=== PATIENT | female | born 1990 | race Caucasian/White ===

== ENCOUNTER 2016-05-04 17:16 | Emergency (ER) | payer OTHER ==
[2016-05-04 17:59] LABS: MEAN CORPUSCULAR HEMOGLOBIN 30.1 pg (27.0-33.0); MEAN CORPUSCULAR HGB CONC 34.7 g/dl (32.0-36.5); MEAN CORPUSCULAR VOLUME 86.7 fl (80.0-96.0); WHITE BLOOD COUNT 7.8 K/mm3 (4.0-10.0)
--- NOTE | 2016-05-04 19:09 | REP ---
First trimester obstetrical ultrasound for vaginal bleeding: The study is performed with transabdominal, endovaginal and Doppler ultrasound assessment: Balloon the uterus is anteflexed and the fundus is anteverted. There is no intrauterine gestational sac. The endometrium is not thickened measuring 13 mm. There is no fluid within the endometrial canal. The ovaries are normal size. Right ovary measures 2.6 x 2.6 x 2.7 cm. Left ovary measures 2.9 x 2.0 x 1.8 cm. There is vascular flow in both ovaries with the Doppler resistive index of intraparenchymal arteries on the right measuring 0.35 and on the left 0.55. There is a 1.7 cm hyperechoic probable hemorrhagic cyst of the left ovary. There is no free fluid in the pelvis. Impression: The findings are nonspecific and could represent an early intrauterine gestation not yet visible ultrasonographically, spontaneous , blighted ovum or ectopic gestation. Follow-up is recommended. Signed by Rajesh Guadalupe MD 05/04/2016 07:00 P
--- NOTE | 2016-05-04 20:34 | EDDOCDS ---
Physician Documentation [facility] Name: Doris May Age: 25 yrs Sex: Female : 1990 Arrival Date: 05/04/2016 Time: 17:16 Bed I2 / M2 Private MD: Jadon Disposition: 05/04/16 20:23 Discharged to Home/Self Care. Impression: Threatened . - Condition is Stable. - Discharge Instructions: Threatened Miscarriage. - Medication Reconciliation, Local Pharmacy Hours form. - Follow up: Private Physician; When: Tomorrow; Reason: Recheck today's complaints, Continuance of care. - Problem is new. - Symptoms have improved. - Notes: PLEASE FOLLOW UP WITH [facility] TOMORROW, RETURN TO THE ER IF THE SYPTOMS WORSEN OR BECOME CONCERNING Historical: - Allergies: No known drug Allergies; - Home Meds: 1. prednisone 5 mg Oral tab once daily 2. endometrin Unknown daily - PMHx: none; - PSHx: D & C; - Social history: Smoking status: Patient states was never smoker of tobacco. No barriers to communication noted, The patient speaks fluent Syriac, Speaks appropriately for age. - Family history: Not pertinent. - : The pt / caregiver states he / she is not on anticoagulants. Home medication list is obtained from the patient. - Exposure Risk Screening:: None identified. RN PRIVATE DUTY: 05/04 20:33 LMP N/A - control method mlc Vital Signs: 17:18 BP 123 / 82; Pulse 57; Resp 18 S; Temp 97.0(O); Pulse Ox 98% on R/A; Weight 69.4 kg / gr2 153 lbs (R); Height 5 ft. 3 in. (160.02 cm) (R); Pain 3/10; 20:32 BP 119 / 71; Pulse 62; Resp 16; Temp 98.0; Pulse Ox 99% on R/A; Pain 0/10; mlc 17:18 Body Mass Index 27.10 (69.40 kg, 160.02 cm) gr2 MDM: 17:39 Undress patient appropriately for examination ordered. cc10 17:39 Set up pelvic ordered. cc10 17:40 Wet Prep Ordered. EDMS 17:40 Urine Culture Ordered. EDMS 17:41 US 1st trimester Ordered. EDMS 17:41 Complete Blood Count Ordered. EDMS 17:41 Hcg, Serum Quantitative Ordered. EDMS 17:41 Type & Screen Ordered. EDMS 17:41 Urinalysis Ordered. EDMS 17:41 GC & Chlamydia Amplification Ordered. EDMS 17:47 Financial registration complete. ks16 18:42 TRANSVAGINAL US Ordered. EDMS 18:43 DUPLEX SCAN LIMITED (DOPPLER) Ordered. EDMS 19:12 Complete Blood Count Reviewed. ck7 19:12 Hcg, Serum Quantitative Reviewed. ck7 19:12 Type & Screen Reviewed. ck7 19:12 Wet Prep Reviewed. ck7 19:12 US 1st trimester Reviewed. ck7 20:06 [facility] [place] Payment Agreement was scanned into [employer] and attached to record. ks16 20:20 Urinalysis Reviewed. ck7 Signatures: Dispatcher [employer] Deborah Ramirez, RN RN hs1 Joseph Watkins, RPA-C RPA-Cck7 Kavita Rangel RN RN mk4 Celio Snow PA-C PA-C cc10 Odette Garces RN RN [facility] [place] Ana Jarvis, Reg Reg ks16 The chart was reviewed and I authenticate all verbal orders and agree with the evaluation and treatment provided.Attachments: 20:06 [facility] [place] Payment Agreement ks16 MTDD
--- NOTE | 2016-05-04 20:34 | EDDOCDS ---
Nurse's Notes [facility] Name: Doris Dobson Age: 25 yrs Sex: Female : 1990 Arrival Date: 05/04/2016 Time: 17:16 Bed I2 / M2 Private MD: Jadon Diagnosis: Threatened Presentation: 05/04 17:24 Presenting complaint: Patient states: 6 weeks and started bleeding. Patient hs1 reports cramping and found blood in underwear. Small clots also noted. Risk factors: The patient reports no loss of conciousness prior to arrival. This patient has not had a hysterectomy. This patient has not begun menopause. Adult Sepsis Screening: The patient does not have new or worsening altered mentation. Patient's respiratory rate is less than 22. Systolic blood pressure is greater than 100. Patient has a qSOFA score of 0- Negative Sepsis Screen. Suicide/Homicide risk assessment- the patient denies having any suicidal and/or homicidal ideations and does not present with any other emotional, behavioral or mental health complaints. Status: Patient is not a career services director or dependent. Transition of care: patient was not received from another setting of care. 17:24 Acuity: LISA Level 3 hs1 17:24 Method Of Arrival: Walkin/Carried/Asstd hs1 Triage Assessment: 17:28 General: Appears uncomfortable, Behavior is anxious, appropriate for age, cooperative. hs1 Pain: Location: pelvis Pain currently is 2 out of 10 on a pain scale. Quality of pain is described as crampy. HIV screening NA for this visit Offered previously. : Reports vaginal bleeding that is with clots light flow. ADULT PSYCHIATRIST: 20:33 LMP N/A - control method mlc Historical: - Allergies: No known drug Allergies; - Home Meds: 1. prednisone 5 mg Oral tab once daily 2. endometrin Unknown daily - PMHx: none; - PSHx: D & C; - Social history: Smoking status: Patient states was never smoker of tobacco. No barriers to communication noted, The patient speaks fluent Estonian, Speaks appropriately for age. - Family history: Not pertinent. - : The pt / caregiver states he / she is not on anticoagulants. Home medication list is obtained from the patient. - Exposure Risk Screening:: None identified. Screenin:33 Screening information is obtained from the patient. Fall risk: No risks identified. mk4 Assistance ADL's: requires no assistance with activities of daily living. Abuse/DV Screen: The patient / caregiver reports he/she is: not in a situation that causes fear, pain or injury. Nutritional screening: No deficits noted. Advance Directives: Currently, there is no health care proxy. There is no active DNR order. There is no living will. There is no Power of Home Theater Experience Expert. home support is adequate. Assessment: 17:33 General: Appears uncomfortable. Pain: Location: dull abd cramping. : Reports vaginal mk4 bleeding that is sudden onset about an hour ago, is approx 6 weeks , third , prev 2 have ended in miscarriage felt a gush of blood then she wiped and had bleeding on the paper, some dull abd cramping today. 17:44 Respiratory: Respiratory effort is unlabored, Respiratory pattern is regular, ck1 symmetrical. : Reports cramping vaginal bleeding that is brown light flow Denies burning with urination, urinary frequency. Derm: Skin is pink, warm & dry. 18:40 General: Appears in no apparent distress, comfortable. Pain: Location: pelvis Pain ck1 currently is 2 out of 10 on a pain scale. Quality of pain is described as crampy. Neurological: Level of Consciousness is awake, alert, obeys commands. Respiratory: Respiratory effort is unlabored, Respiratory pattern is regular, symmetrical. : Reports vaginal bleeding that is brown light flow. Derm: Skin is pink, warm & dry. 19:44 General: Appears in no apparent distress, comfortable, Behavior is cooperative, crying. mlc General: SO at bedside. Pain: Denies pain. Neurological: Level of Consciousness is awake, alert, Oriented to person, place, time. Respiratory: Airway is patent Respiratory effort is even, unlabored, Respiratory pattern is regular. GI: Denies nausea. Derm: Skin is pink, warm & dry. Vital Signs: 17:18 BP 123 / 82; Pulse 57; Resp 18 S; Temp 97.0(O); Pulse Ox 98% on R/A; Weight 69.4 kg gr2 (R); Height 5 ft. 3 in. (160.02 cm) (R); Pain 3/10; 20:32 BP 119 / 71; Pulse 62; Resp 16; Temp 98.0; Pulse Ox 99% on R/A; Pain 0/10; mlc 17:18 Body Mass Index 27.10 (69.40 kg, 160.02 cm) gr2 Vitals: 17:18 Log In Time: May 04, 2016 at 17:18. gr2 ED Course: 17:18 Patient visited by Priscilla Parker. gr2 17:18 Jadon is Private Physician. gr2 17:18 Patient moved to Waiting gr2 17:19 Patient visited by Priscilla Parker. gr2 17:19 Patient moved to Pre RCE gr2 17:25 Triage Initiated hs1 17:30 Patient moved to I2 / M2 mk4 17:35 Celio Snow PA-C is PHCP. cc10 17:35 Raymond Hurley DO is Attending Physician. cc10 17:35 Patient visited by Celio Snow PA-C. cc10 17:35 Patient visited by Celio Snow PA-C. cc10 17:45 Patient visited by Nikkie Michelle RN. ck1 17:45 The patient / caregiver is instructed regarding the plan of care and ED course. ck1 17:51 Complete Blood Count Sent. ck1 17:51 Hcg, Serum Quantitative Sent. ck1 17:51 Type & Screen Sent. ck1 17:54 Assist provider with pelvic exam: Set up pelvic tray. Specimens sent to lab. Performed ck1 by Celio Snow PA-C Patient tolerated well. 17:54 GC & Chlamydia Amplification Sent. ck1 17:54 Wet Prep Sent. ck1 18:02 PHCP role handed off by Celio Snow PA-C ck7 18:02 Joseph Watkins RPA-C is PHCP. ck7 18:07 Pt greeted and oriented to ED. Patient advised of names of staff involved in care, jam1 location of call disla, wait times and NPO status. Patient has correct armband on for positive identification. Placed in gown. Bed in low position. Call light in reach. Side rails up X 1. Door closed. 18:17 Patient visited by Joseph Watkins RPA-C. ck7 18:20 Patient moved to Ultrasound br3 18:36 Patient moved to I2 / M2 ck1 18:48 Patient visited by Nikkie Michelle RN. ck1 19:09 US 1st trimester Returned. EDMS 19:22 Patient visited by Joseph Watkins RPA-C. ck7 19:44 Urine Culture Sent. mlc 19:44 Urinalysis Sent. mlc 19:45 Patient visited by Odette Garces RN. mlc 20:06 [facility] Payment Agreement was scanned into [employer] and attached to record. ks16 20:17 Patient visited by Joseph Watkins RPA-C. ck7 20:32 Odette Garces,ANNEMARIE is Primary Nurse. mlc 20:32 Patient visited by Odette Garces RN. mlc 20:32 No IV's were initiated during this patient's visit. [facility] [place] Results: Lab Order: Complete Blood Count; SPEC'M 05/04/16 17:50 Test: WHITE BLOOD COUNT; Value: 7.8; Range: 4.0-10.0; Units: K/mm3; Status: F Test: RED BLOOD COUNT; Value: 4.05; Range: 4.00-5.40; Units: M/mm3; Status: F Test: HEMOGLOBIN; Value: 12.2; Range: 12.0-16.0; Units: g/dl; Status: F Test: HEMATOCRIT; Value: 35.1; Range: 36.0-47.0; Abnormal: Below low normal; Units: %; Status: F Test: MEAN CORPUSCULAR VOLUME; Value: 86.7; Range: 80.0-96.0; Units: fl; Status: F Test: MEAN CORPUSCULAR HEMOGLOBIN; Value: 30.1; Range: 27.0-33.0; Units: pg; Status: F Test: MEAN CORPUSCULAR HGB CONC; Value: 34.7; Range: 32.0-36.5; Units: g/dl; Status: F Test: RED CELL DISTRIBUTION WIDTH; Value: 12.0; Range: 11.5-14.5; Units: %; Status: F Test: PLATELET COUNT, AUTOMATED; Value: 187; Range: 150-450; Units: k/mm3; Status: F Lab Order: Hcg, Serum Quantitative; SPEC'M 05/04/16 17:50 Test: HCG, SERUM QUANTITATIVE; Value: 574; Units: MIU/ML; Status: F Test Note: ; GESTATIONAL AGE APPROXIMATE HCG RANGE (MIU/ML) 0.2-1 WEEK 5-50 1-2 WEEKS 50-500 2-3 WEEKS 100-5,000 3-4 WEEKS 500-10,000 4-5 WEEKS 1,000-50,000 5-6 WEEKS 10,000-100,000 6-8 WEEKS 15,000-200,000 2-3 MONTHS 10,000-100,000 NON FEMALES LESS THAN 3.0 Patient samples may contain human heterophilic antibodies that could react with immunoassays to give falsely elevated or depressed results. This assay has been designed to minimize interference from heterophilic antibodies. Elevated hCG levels have also been associated with trophoblastic disease and nontrophoblastic neoplasms. The possibility of having these diseases should be considered before a diagnosis of is made. This test is not intended for use as a surrogate marker for aiding in the diagnosis or monitoring the treatment of cancer patients. [employer] [place] methodology. Lab Order: Type & Screen; SPEC'M 05/04/16 17:50 Test: BLOOD TYPE; Value: O POS; Status: F Test: AB SCREEN (INDIRECT FARTUN)VIS; Value: NEGATIVE; Status: F Lab Order: Urinalysis; SPEC'M 05/04/16 19:41 Test: APPEARANCE, URINE; Value: HAZY; Range: CLEAR; Status: F Test: COLOR, URINE; Value: YELLOW; Range: YELLOW; Status: F Test: PH,URINE; Value: 5.0; Range: 5.0-9.0; Units: UNITS; Status: F Test: SPECIFIC GRAVITY URINE AUTO; Value: 1.025; Range: 1.002-1.035; Status: F Test: PROTEIN, URINE AUTO; Value: NEGATIVE; Range: NEGATIVE; Units: mg/dL; Status: F Test: GLUCOSE, URINE (UA) AUTO; Value: NEGATIVE; Range: NEGATIVE; Units: mg/dL; Status: F Test: KETONE, URINE AUTO; Value: TRACE; Range: NEGATIVE; Abnormal: Above high normal; Units: mg/dL; Status: F Test: UROBILINOGEN, URINE AUTO; Value: 0.2; Range: 0.0-2.0; Units: mg/dL; Status: F Test: BILIRUBIN, URINE AUTO; Value: NEGATIVE; Range: NEGATIVE; Status: F Test: NITRITE, URINE AUTO; Value: NEGATIVE; Range: NEGATIVE; Status: F Test: LEUKOCYTE ESTERASE, URINE AUTO; Value: NEGATIVE; Range: NEGATIVE; Status: F Test: BLOOD, URINE BLOOD; Value: 3+; Range: NEGATIVE; Abnormal: Above high normal; Status: F Test: WBC, URINE AUTO; Value: 2; Range: 0-3; Units: /HPF; Status: F Test: RBC, URINE AUTO; Value: 120; Range: 0-3; Abnormal: Above high normal; Units: /HPF; Status: F Test: BACTERIA, URINE AUTO; Value: 1+; Range: NEGATIVE; Abnormal: Above high normal; Status: F Test: SQUAMOUS EPITHELIAL CELL UR AU; Value: 2; Range: 0-6; Units: /HPF; Status: F Test: MUCUS, URINE; Value: SMALL; Range: NEGATIVE; Status: F Test: HYALINE CAST, URINE AUTO; Value: 0; Range: 0-1; Units: /LPF; Status: F Lab Order: Wet Prep; SPEC'M 05/04/16 17:50 Test: WET PREP; Value: WET PREP RESULT; Status: F Test: WET PREP; Value: MODERATE EPITHELIAL CELLS PRESENT; Status: F Test: WET PREP; Value: FEW WBC; Status: F Test: WET PREP; Value: FEW RBC; Status: F Test: WET PREP; Value: MODERATE LONG RODS PRESENT; Status: F Test: WET PREP; Value: FEW SHORT RODS PRESENT; Status: F Radiology Order: US 1st trimester Test: US 1st trimester REASON FOR EXAMINATION: Bleeding; First trimester obstetrical ultrasound for vaginal bleeding:; ; The study is performed with transabdominal, endovaginal and Doppler ultrasound; assessment:; ; Balloon the uterus is anteflexed and the fundus is anteverted.; ; There is no intrauterine gestational sac. The endometrium is not thickened; measuring 13 mm. There is no fluid within the endometrial canal.; ; The ovaries are normal size.; Right ovary measures 2.6 x 2.6 x 2.7 cm.; Left ovary measures 2.9 x 2.0 x 1.8 cm.; ; There is vascular flow in both ovaries with the Doppler resistive index of; intraparenchymal arteries on the right measuring 0.35 and on the left 0.55.; ; There is a 1.7 cm hyperechoic probable hemorrhagic cyst of the left ovary.; ; There is no free fluid in the pelvis.; ; Impression:; ; The findings are nonspecific and could represent an early intrauterine gestation; not yet visible ultrasonographically, spontaneous , blighted ovum or; ectopic gestation.; ; Follow-up is recommended.; ; ; Signed by; Rajesh Guadalupe MD 05/04/2016 07:00 P; Outcome: 18:36 Ultrasound Study completed. ck1 20:23 Discharge ordered by Provider. ck7 20:32 Discharge Assessment: Patient awake, alert and oriented x 3. No cognitive and/or mlc functional deficits noted. Patient verbalized understanding of disposition instructions. Patient awake and alert. Oriented to person, place and time. patient administered narcotics - no. The following High Risk Discharge criteria are identified: None. Condition: good Condition: stable Condition: improved. Discharge instructions given to patient. Property :Personal belongings accompany Pt. 20:33 [place]. [facility] [place] Signatures: Dispatcher [employer] EDMS Darby Khan, BOARD FILLER BOARD FILLER jam1 Nikkie MichelleRN RN ck1 Kaitlin Parker br3 Deborah Ross RN RN hs1 Joseph Watkins, RPA-C RPA-Cck7 Priscilla Parker gr2 Kavita Rangel RN RN mk4 Celio Snow PA-C PA-C cc10 Odette Garces RN RN [facility] [place] Ana Jarvis, Reg Reg ks16 MTDD
--- NOTE | 2016-05-06 21:34 | EDDOCDS ---
Nurse's Notes [facility] Name: Doris Dobson Age: 25 yrs Sex: Female : 1990 Arrival Date: 05/04/2016 Time: 17:16 Bed I2 / M2 Private MD: Jaodn Diagnosis: Threatened Presentation: 05/04 17:24 Presenting complaint: Patient states: 6 weeks and started bleeding. Patient hs1 reports cramping and found blood in underwear. Small clots also noted. Risk factors: The patient reports no loss of conciousness prior to arrival. This patient has not had a hysterectomy. This patient has not begun menopause. Adult Sepsis Screening: The patient does not have new or worsening altered mentation. Patient's respiratory rate is less than 22. Systolic blood pressure is greater than 100. Patient has a qSOFA score of 0- Negative Sepsis Screen. Suicide/Homicide risk assessment- the patient denies having any suicidal and/or homicidal ideations and does not present with any other emotional, behavioral or mental health complaints. Status: Patient is not a printing services coordinator or dependent. Transition of care: patient was not received from another setting of care. 17:24 Acuity: LISA Level 3 hs1 17:24 Method Of Arrival: Walkin/Carried/Asstd hs1 Triage Assessment: 17:28 General: Appears uncomfortable, Behavior is anxious, appropriate for age, cooperative. hs1 Pain: Location: pelvis Pain currently is 2 out of 10 on a pain scale. Quality of pain is described as crampy. HIV screening NA for this visit Offered previously. : Reports vaginal bleeding that is with clots light flow. 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 prednisone 5 mg Oral tab once daily 2. endometrin Unknown daily - PMHx: none; - PSHx: D & C; - Social history: Smoking status: Patient states was never smoker of tobacco. No barriers to communication noted, The patient speaks fluent Setswana, Speaks appropriately for age. - Family history: Not pertinent. - : The pt / caregiver states he / she is not on anticoagulants. Home medication list is obtained from the patient. - Exposure Risk Screening:: None identified. Screenin:33 Screening information is obtained from the patient. Fall risk: No risks identified. mk4 Assistance ADL's: requires no assistance with activities of daily living. Abuse/DV Screen: The patient / caregiver reports he/she is: not in a situation that causes fear, pain or injury. Nutritional screening: No deficits noted. Advance Directives: Currently, there is no health care proxy. There is no active DNR order. There is no living will. There is no Power of Rail Car Repairman. home support is adequate. Assessment: 17:33 General: Appears uncomfortable. Pain: Location: dull abd cramping. : Reports vaginal mk4 bleeding that is sudden onset about an hour ago, is approx 6 weeks , third , prev 2 have ended in miscarriage felt a gush of blood then she wiped and had bleeding on the paper, some dull abd cramping today. 17:44 Respiratory: Respiratory effort is unlabored, Respiratory pattern is regular, ck1 symmetrical. : Reports cramping vaginal bleeding that is brown light flow Denies burning with urination, urinary frequency. Derm: Skin is pink, warm & dry. 18:40 General: Appears in no apparent distress, comfortable. Pain: Location: pelvis Pain ck1 currently is 2 out of 10 on a pain scale. Quality of pain is described as crampy. Neurological: Level of Consciousness is awake, alert, obeys commands. Respiratory: Respiratory effort is unlabored, Respiratory pattern is regular, symmetrical. : Reports vaginal bleeding that is brown light flow. Derm: Skin is pink, warm & dry. 19:44 General: Appears in no apparent distress, comfortable, Behavior is cooperative, crying. mlc General: SO at bedside. Pain: Denies pain. Neurological: Level of Consciousness is awake, alert, Oriented to person, place, time. Respiratory: Airway is patent Respiratory effort is even, unlabored, Respiratory pattern is regular. GI: Denies nausea. Derm: Skin is pink, warm & dry. Vital Signs: 17:18 BP 123 / 82; Pulse 57; Resp 18 S; Temp 97.0(O); Pulse Ox 98% on R/A; Weight 69.4 kg gr2 (R); Height 5 ft. 3 in. (160.02 cm) (R); Pain 3/10; 20:32 BP 119 / 71; Pulse 62; Resp 16; Temp 98.0; Pulse Ox 99% on R/A; Pain 0/10; mlc 17:18 Body Mass Index 27.10 (69.40 kg, 160.02 cm) gr2 Vitals: 17:18 Log In Time: May 04, 2016 at 17:18. gr2 ED Course: 17:18 Patient visited by Priscilla Parker. gr2 17:18 Jadon is Private Physician. gr2 17:18 Patient moved to Waiting gr2 17:19 Patient visited by Priscilla Parker. gr2 17:19 Patient moved to Pre RCE gr2 17:25 Triage Initiated hs1 17:30 Patient moved to I2 / M2 mk4 17:35 Celio Snow PA-C is PHCP. cc10 17:35 Raymond Hurley DO is Attending Physician. cc10 17:35 Patient visited by Celio Snow PA-C. cc10 17:35 Patient visited by Celio Snow PA-C. cc10 17:45 Patient visited by Nikkie Michelle RN. ck1 17:45 The patient / caregiver is instructed regarding the plan of care and ED course. ck1 17:51 Complete Blood Count Sent. ck1 17:51 Hcg, Serum Quantitative Sent. ck1 17:51 Type & Screen Sent. ck1 17:54 Assist provider with pelvic exam: Set up pelvic tray. Specimens sent to lab. Performed ck1 by Celio Snow PA-C Patient tolerated well. 17:54 GC & Chlamydia Amplification Sent. ck1 17:54 Wet Prep Sent. ck1 18:02 PHCP role handed off by Celio Snow PA-C ck7 18:02 Joseph Watkins RPA-C is PHCP. ck7 18:07 Pt greeted and oriented to ED. Patient advised of names of staff involved in care, jam1 location of call disla, wait times and NPO status. Patient has correct armband on for positive identification. Placed in gown. Bed in low position. Call light in reach. Side rails up X 1. Door closed. 18:17 Patient visited by Joseph Watkins RPA-C. ck7 18:20 Patient moved to Ultrasound br3 18:36 Patient moved to I2 / M2 ck1 18:48 Patient visited by Nikkie Michelle RN. ck1 19:09 US 1st trimester Returned. EDMS 19:22 Patient visited by Joseph Watkins RPA-C. ck7 19:44 Urine Culture Sent. mlc 19:44 Urinalysis Sent. mlc 19:45 Patient visited by Odette Garces,ANNEMARIE. mlc 20:06 [facility] Payment Agreement was scanned into mimoOn and attached to record. ks16 20:17 Patient visited by Joseph Watkins RPA-C. ck7 20:32 Odette Garces,ANNEMARIE is Primary Nurse. mlc 20:32 Patient visited by Odette Garces RN. mlc 20:32 No IV's were initiated during this patient's visit. [facility] [place] 05/05 11:29 T-Sheet-- Draft Copy was scanned into mimoOn and attached to record. gb Order Results: Lab Order: Complete Blood Count; SPEC'M 05/04/16 17:50 Test: WHITE BLOOD COUNT; Value: 7.8; Range: 4.0-10.0; Units: K/mm3; Status: F Test: RED BLOOD COUNT; Value: 4.05; Range: 4.00-5.40; Units: M/mm3; Status: F Test: HEMOGLOBIN; Value: 12.2; Range: 12.0-16.0; Units: g/dl; Status: F Test: HEMATOCRIT; Value: 35.1; Range: 36.0-47.0; Abnormal: Below low normal; Units: %; Status: F Test: MEAN CORPUSCULAR VOLUME; Value: 86.7; Range: 80.0-96.0; Units: fl; Status: F Test: MEAN CORPUSCULAR HEMOGLOBIN; Value: 30.1; Range: 27.0-33.0; Units: pg; Status: F Test: MEAN CORPUSCULAR HGB CONC; Value: 34.7; Range: 32.0-36.5; Units: g/dl; Status: F Test: RED CELL DISTRIBUTION WIDTH; Value: 12.0; Range: 11.5-14.5; Units: %; Status: F Test: PLATELET COUNT, AUTOMATED; Value: 187; Range: 150-450; Units: k/mm3; Status: F Lab Order: Hcg, Serum Quantitative; SPEC'M 05/04/16 17:50 Test: HCG, SERUM QUANTITATIVE; Value: 574; Units: MIU/ML; Status: F Test Note: ; GESTATIONAL AGE APPROXIMATE HCG RANGE (MIU/ML) 0.2-1 WEEK 5-50 1-2 WEEKS 50-500 2-3 WEEKS 100-5,000 3-4 WEEKS 500-10,000 4-5 WEEKS 1,000-50,000 5-6 WEEKS 10,000-100,000 6-8 WEEKS 15,000-200,000 2-3 MONTHS 10,000-100,000 NON FEMALES LESS THAN 3.0 Patient samples may contain human heterophilic antibodies that could react with immunoassays to give falsely elevated or depressed results. This assay has been designed to minimize interference from heterophilic antibodies. Elevated hCG levels have also been associated with trophoblastic disease and nontrophoblastic neoplasms. The possibility of having these diseases should be considered before a diagnosis of is made. This test is not intended for use as a surrogate marker for aiding in the diagnosis or monitoring the treatment of cancer patients. Siemens [place] methodology. Lab Order: Type & Screen; [facility] 05/04/16 17:50 Test: BLOOD TYPE; Value: O POS; Status: F Test: AB SCREEN (INDIRECT FARTUN)VIS; Value: NEGATIVE; Status: F Lab Order: Urinalysis; [facility] 05/04/16 19:41 Test: APPEARANCE, URINE; Value: HAZY; Range: CLEAR; Status: F Test: COLOR, URINE; Value: YELLOW; Range: YELLOW; Status: F Test: PH,URINE; Value: 5.0; Range: 5.0-9.0; Units: UNITS; Status: F Test: SPECIFIC GRAVITY URINE AUTO; Value: 1.025; Range: 1.002-1.035; Status: F Test: PROTEIN, URINE AUTO; Value: NEGATIVE; Range: NEGATIVE; Units: mg/dL; Status: F Test: GLUCOSE, URINE (UA) AUTO; Value: NEGATIVE; Range: NEGATIVE; Units: mg/dL; Status: F Test: KETONE, URINE AUTO; Value: TRACE; Range: NEGATIVE; Abnormal: Above high normal; Units: mg/dL; Status: F Test: UROBILINOGEN, URINE AUTO; Value: 0.2; Range: 0.0-2.0; Units: mg/dL; Status: F Test: BILIRUBIN, URINE AUTO; Value: NEGATIVE; Range: NEGATIVE; Status: F Test: NITRITE, URINE AUTO; Value: NEGATIVE; Range: NEGATIVE; Status: F Test: LEUKOCYTE ESTERASE, URINE AUTO; Value: NEGATIVE; Range: NEGATIVE; Status: F Test: BLOOD, URINE BLOOD; Value: 3+; Range: NEGATIVE; Abnormal: Above high normal; Status: F Test: WBC, URINE AUTO; Value: 2; Range: 0-3; Units: /HPF; Status: F Test: RBC, URINE AUTO; Value: 120; Range: 0-3; Abnormal: Above high normal; Units: /HPF; Status: F Test: BACTERIA, URINE AUTO; Value: 1+; Range: NEGATIVE; Abnormal: Above high normal; Status: F Test: SQUAMOUS EPITHELIAL CELL UR AU; Value: 2; Range: 0-6; Units: /HPF; Status: F Test: MUCUS, URINE; Value: SMALL; Range: NEGATIVE; Status: F Test: HYALINE CAST, URINE AUTO; Value: 0; Range: 0-1; Units: /LPF; Status: F Lab Order: Wet Prep; SPEC'M 05/04/16 17:50 Test: WET PREP; Value: WET PREP RESULT; Status: F Test: WET PREP; Value: MODERATE EPITHELIAL CELLS PRESENT; Status: F Test: WET PREP; Value: FEW WBC; Status: F Test: WET PREP; Value: FEW RBC; Status: F Test: WET PREP; Value: MODERATE LONG RODS PRESENT; Status: F Test: WET PREP; Value: FEW SHORT RODS PRESENT; Status: F Lab Order: GC & Chlamydia Amplification; SPEC'M 05/04/16 17:50 Test: CHLAMYDIA DNA AMPLIFICATION; Value: NEGATIVE; Range: NEGATIVE; Status: F Test: GC DNA AMPLIFICATION; Value: NEGATIVE; Range: NEGATIVE; Status: F Lab Order: Urine Culture; SPEC'M 05/04/16 19:41 Test: URINE CULTURE; Value: <EXTERNAL COMMENT eCWMed> FULL REPORT IN LAB NOTES (eCW and Medent).; Status: F Test: URINE CULTURE; Value: ORGANISM 1: ESCHERICHIA COLI; Status: F Test: URINE CULTURE; Value: ESCHERICHIA COLI; Status: F Test: URINE CULTURE; Value: COLONY COUNT CFU/ml 50,000; Status: F Test: URINE CULTURE; Value: GRAM NEG SENSI - VITEK 80; Status: F Test: URINE CULTURE; Value: Method: VIT2; Status: F Test: URINE CULTURE; Value: EXTD BRD SPCTRM BETA LACTAMASE -; Status: F Test: URINE CULTURE; Value: TRIMETHOPRIM/SULFAMETHOXAZOLE <=20 S; Status: F Test: URINE CULTURE; Value: AMPICILLIN >=32 R; Status: F Test: URINE CULTURE; Value: GENTAMICIN <=1 S; Status: F Test: URINE CULTURE; Value: NITROFURANTOIN <=16 S; Status: F Test: URINE CULTURE; Value: CEFAZOLIN <=4 S; Status: F Test: URINE CULTURE; Value: LEVOFLOXACIN <=0.12 S; Status: F Test: URINE CULTURE; Value: TOBRAMYCIN <=1 S; Status: F Test: URINE CULTURE; Value: CEFTRIAXONE <=1 S; Status: F Test: URINE CULTURE; Value: CEFTAZIDIME <=1 S; Status: F Test: URINE CULTURE; Value: AMPICILLIN/SULBACTAM >=32 R; Status: F Test: URINE CULTURE; Value: PIPERACILLIN/TAZOBACTAM <=4 S; Status: F Test: URINE CULTURE; Value: AZTREONAM <=1 S; Status: F Test: URINE CULTURE; Value: ERTAPENEM <=0.5 S; Status: F Test: URINE CULTURE; Value: MEROPENEM <=0.25 S; Status: F Test: URINE CULTURE; Value: TIGECYCLINE <=0.5 S; Status: F Test: URINE CULTURE; Value: CEFEPIME <=1 S; Status: F Radiology Order: US 1st trimester Test: US 1st trimester REASON FOR EXAMINATION: Bleeding; First trimester obstetrical ultrasound for vaginal bleeding:; ; The study is performed with transabdominal, endovaginal and Doppler ultrasound; assessment:; ; Balloon the uterus is anteflexed and the fundus is anteverted.; ; There is no intrauterine gestational sac. The endometrium is not thickened; measuring 13 mm. There is no fluid within the endometrial canal.; ; The ovaries are normal size.; Right ovary measures 2.6 x 2.6 x 2.7 cm.; Left ovary measures 2.9 x 2.0 x 1.8 cm.; ; There is vascular flow in both ovaries with the Doppler resistive index of; intraparenchymal arteries on the right measuring 0.35 and on the left 0.55.; ; There is a 1.7 cm hyperechoic probable hemorrhagic cyst of the left ovary.; ; There is no free fluid in the pelvis.; ; Impression:; ; The findings are nonspecific and could represent an early intrauterine gestation; not yet visible ultrasonographically, spontaneous , blighted ovum or; ectopic gestation.; ; Follow-up is recommended.; ; ; Signed by; Rajesh Guadalupe MD 05/04/2016 07:00 P; Outcome: 05/04 18:36 Ultrasound Study completed. ck1 20:23 Discharge ordered by Provider. ck7 20:32 Discharge Assessment: Patient awake, alert and oriented x 3. No cognitive and/or mlc functional deficits noted. Patient verbalized understanding of disposition instructions. Patient awake and alert. Oriented to person, place and time. patient administered narcotics - no. The following High Risk Discharge criteria are identified: None. Condition: good Condition: stable Condition: improved. Discharge instructions given to patient. Property :Personal belongings accompany Pt. 20:33 Patient left the ED. mlc Signatures: Dispatcher MedHost EDMS Darby Khan, DYNAMITE PACKING MACHINE FEEDER DYNAMITE PACKING MACHINE FEEDER jam1 Emily Dutta, Reg Reg gb Nikkie Michelle,RN RN ck1 Kaitlin Parker br3 Deborah Ross RN RN hs1 Joseph Watkins, RPA-C RPA-Cck7 Priscilla Parker gr2 Kavita Rangel RN RN mk4 Celio Snow, PA-C PA-C cc10 Odette Garces RN RN mlc Sorenson, Kimberly, Reg Reg [email or web address] Chart Complete MTDD
--- NOTE | 2016-05-06 21:34 | EDDOCDS ---
Physician Documentation [facility] Name: Doris May Age: 25 yrs Sex: Female : 1990 Arrival Date: 05/04/2016 Time: 17:16 Bed I2 / M2 Private MD: Jadon Disposition: 05/04/16 20:23 Discharged to Home/Self Care. Impression: Threatened . - Condition is Stable. - Discharge Instructions: Threatened Miscarriage. - Medication Reconciliation, Local Pharmacy Hours form. - Follow up: Private Physician; When: Tomorrow; Reason: Recheck today's complaints, Continuance of care. - Problem is new. - Symptoms have improved. - Notes: PLEASE FOLLOW UP WITH [facility] TOMORROW, RETURN TO THE ER IF THE SYPTOMS WORSEN OR BECOME CONCERNING Historical: - Allergies: No known drug Allergies; - Home Meds: 1. prednisone 5 mg Oral tab once daily 2. endometrin Unknown daily - PMHx: none; - PSHx: D & C; - Social history: Smoking status: Patient states was never smoker of tobacco. No barriers to communication noted, The patient speaks fluent Kazakh, Speaks appropriately for age. - Family history: Not pertinent. - : The pt / caregiver states he / she is not on anticoagulants. Home medication list is obtained from the patient. - Exposure Risk Screening:: None identified. 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 3 in. (160.02 cm) (R); Pain 3/10; 20:32 BP 119 / 71; Pulse 62; Resp 16; Temp 98.0; Pulse Ox 99% on R/A; Pain 0/10; mlc 17:18 Body Mass Index 27.10 (69.40 kg, 160.02 cm) gr2 MDM: 17:39 Undress patient appropriately for examination ordered. cc10 17:39 Set up pelvic ordered. cc10 17:40 Wet Prep Ordered. EDMS 17:40 Urine Culture Ordered. EDMS 17:41 US 1st trimester Ordered. EDMS 17:41 Complete Blood Count Ordered. EDMS 17:41 Hcg, Serum Quantitative Ordered. EDMS 17:41 Type & Screen Ordered. EDMS 17:41 Urinalysis Ordered. EDMS 17:41 GC & Chlamydia Amplification Ordered. EDMS 17:47 Financial registration complete. ks16 18:42 TRANSVAGINAL US Ordered. EDMS 18:43 DUPLEX SCAN LIMITED (DOPPLER) Ordered. EDMS 19:12 Complete Blood Count Reviewed. ck7 19:12 Hcg, Serum Quantitative Reviewed. ck7 19:12 Type & Screen Reviewed. ck7 19:12 Wet Prep Reviewed. ck7 19:12 US 1st trimester Reviewed. ck7 20:06 [facility] [place] Payment Agreement was scanned into Holograam and attached to record. ks16 20:20 Urinalysis Reviewed. ck7 05/05 11:29 T-Sheet-- Draft Copy was scanned into Holograam and attached to record. gb Signatures: Dispatcher MedHost EDMS Emily Dutta, Reg Reg gb Deborah Ross RN RN hs1 Joseph Watkins, RPA-C RPA-Cck7 Kavita Rangel RN RN mk4 Celio Snow PA-C PA-C cc10 Odette Garces,RN RN [facility] [place] Ana Jarvis, Reg Reg ks16 The chart was reviewed and I authenticate all verbal orders and agree with the evaluation and treatment provided.Attachments: 05/04 20:06 [facility] [place] Payment Agreement [email or web address] 05/05 11:29 T-Sheet-- Draft Copy gb Chart Complete MTDD
--- NOTE | 2016-05-06 21:34 | EDDOCDS ---
Physician Documentation [facility] Name: Doris May Age: 25 yrs Sex: Female : 1990 Arrival Date: 05/04/2016 Time: 17:16 Bed I2 / M2 Private MD: Jadon Disposition: 05/04/16 20:23 Discharged to Home/Self Care. Impression: Threatened . - Condition is Stable. - Discharge Instructions: Threatened Miscarriage. - Medication Reconciliation, Local Pharmacy Hours form. - Follow up: Private Physician; When: Tomorrow; Reason: Recheck today's complaints, Continuance of care. - Problem is new. - Symptoms have improved. - Notes: PLEASE FOLLOW UP WITH [facility] TOMORROW, RETURN TO THE ER IF THE SYPTOMS WORSEN OR BECOME CONCERNING Historical: - Allergies: No known drug Allergies; - Home Meds: 1. prednisone 5 mg Oral tab once daily 2. endometrin Unknown daily - PMHx: none; - PSHx: D & C; - Social history: Smoking status: Patient states was never smoker of tobacco. No barriers to communication noted, The patient speaks fluent Romanian, Speaks appropriately for age. - Family history: Not pertinent. - : The pt / caregiver states he / she is not on anticoagulants. Home medication list is obtained from the patient. - Exposure Risk Screening:: None identified. 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 3 in. (160.02 cm) (R); Pain 3/10; 20:32 BP 119 / 71; Pulse 62; Resp 16; Temp 98.0; Pulse Ox 99% on R/A; Pain 0/10; mlc 17:18 Body Mass Index 27.10 (69.40 kg, 160.02 cm) gr2 MDM: 17:39 Undress patient appropriately for examination ordered. cc10 17:39 Set up pelvic ordered. cc10 17:40 Wet Prep Ordered. EDMS 17:40 Urine Culture Ordered. EDMS 17:41 US 1st trimester Ordered. EDMS 17:41 Complete Blood Count Ordered. EDMS 17:41 Hcg, Serum Quantitative Ordered. EDMS 17:41 Type & Screen Ordered. EDMS 17:41 Urinalysis Ordered. EDMS 17:41 GC & Chlamydia Amplification Ordered. EDMS 17:47 Financial registration complete. ks16 18:42 TRANSVAGINAL US Ordered. EDMS 18:43 DUPLEX SCAN LIMITED (DOPPLER) Ordered. EDMS 19:12 Complete Blood Count Reviewed. ck7 19:12 Hcg, Serum Quantitative Reviewed. ck7 19:12 Type & Screen Reviewed. ck7 19:12 Wet Prep Reviewed. ck7 19:12 US 1st trimester Reviewed. ck7 20:06 [place] [place] Agreement was scanned into RocketHub and attached to record. ks16 20:20 Urinalysis Reviewed. ck7 05/05 11:29 T-Sheet-- Draft Copy was scanned into RocketHub and attached to record. gb Signatures: Dispatcher MedHost EDMS Emily Dutta, Reg Reg gb Deborah Ross RN RN hs1 Joseph Watkins, RPA-C RPA-Cck7 Kavita Rangel RN RN mk4 Celio Snow PA-C PA-C cc10 Odette Garces,RN RN [facility] [place] Ana Jarvis, Reg Reg ks16 The chart was reviewed and I authenticate all verbal orders and agree with the evaluation and treatment provided.Attachments: 05/04 20:06 [place] [place] Agreement [email or web address] 05/05 11:29 T-Sheet-- Draft Copy gb Chart Complete MTDD
--- NOTE | 2016-05-08 18:32 | EDDOCDS ---
Physician Documentation [facility] Name: Doris May Age: 25 yrs Sex: Female : 1990 Arrival Date: 05/04/2016 Time: 17:16 Bed I2 / M2 Private MD: Jadon Disposition: 05/04/16 20:23 Discharged to Home/Self Care. Impression: Threatened . - Condition is Stable. - Discharge Instructions: Threatened Miscarriage. - Medication Reconciliation, Local Pharmacy Hours form. - Follow up: Private Physician; When: Tomorrow; Reason: Recheck today's complaints, Continuance of care. - Problem is new. - Symptoms have improved. - Notes: PLEASE FOLLOW UP WITH [facility] TOM[facility]ROW, RETURN TO THE ER IF THE SYPTOMS WORSEN OR BECOME CONCERNING Historical: - Allergies: No known drug Allergies; - Home Meds: 1. prednisone 5 mg Oral tab once daily 2. endometrin Unknown daily - PMHx: none; - PSHx: D & C; - Social history: Smoking status: Patient states was never smoker of tobacco. No barriers to communication noted, The patient speaks fluent Sinhala, Speaks appropriately for age. - Family history: Not pertinent. - : The pt / caregiver states he / she is not on anticoagulants. Home medication list is obtained from the patient. - Exposure Risk Screening:: None identified. 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 3 in. (160.02 cm) (R); Pain 3/10; 20:32 BP 119 / 71; Pulse 62; Resp 16; Temp 98.0; Pulse Ox 99% on R/A; Pain 0/10; mlc 17:18 Body Mass Index 27.10 (69.40 kg, 160.02 cm) gr2 MDM: 17:39 Undress patient appropriately for examination ordered. cc10 17:39 Set up pelvic ordered. cc10 17:40 Wet Prep Ordered. EDMS 17:40 Urine Culture Ordered. EDMS 17:41 US 1st trimester Ordered. EDMS 17:41 Complete Blood Count Ordered. EDMS 17:41 Hcg, Serum Quantitative Ordered. EDMS 17:41 Type & Screen Ordered. EDMS 17:41 Urinalysis Ordered. EDMS 17:41 GC & Chlamydia Amplification Ordered. EDMS 17:47 Financial registration complete. ks16 18:42 TRANSVAGINAL US Ordered. EDMS 18:43 DUPLEX SCAN LIMITED (DOPPLER) Ordered. EDMS 19:12 Complete Blood Count Reviewed. ck7 19:12 Hcg, Serum Quantitative Reviewed. ck7 19:12 Type & Screen Reviewed. ck7 19:12 Wet Prep Reviewed. ck7 19:12 US 1st trimester Reviewed. ck7 20:06 [facility] [place] Payment Agreement was scanned into [employer] and attached to record. ks16 20:20 Urinalysis Reviewed. ck7 05/05 11:29 T-Sheet-- Draft Copy was scanned into [employer] and attached to record. gb Signatures: Dispatcher MedHost EDMS Emily Dutta, Reg Reg gb eDborah Ross RN RN hs1 Joseph Watkins, RPA-C RPA-Cck7 Kavita Rangel RN RN mk4 Celio Snow PA-C PA-C cc10 Odette Garces,RN RN [facility] [place] Ana Jarvis, Reg Reg ks16 The chart was reviewed and I authenticate all verbal orders and agree with the evaluation and treatment provided.Attachments: 05/04 20:06 [facility] [place] Payment Agreement [email or web address] 05/05 11:29 T-Sheet-- Draft Copy gb Chart Complete MTDD
--- NOTE | 2016-05-08 18:32 | EDDOCDS ---
Physician Documentation [facility] Name: Doris May Age: 25 yrs Sex: Female : 1990 Arrival Date: 05/04/2016 Time: 17:16 Bed I2 / M2 Private MD: Jadon Disposition: 05/04/16 20:23 Discharged to Home/Self Care. Impression: Threatened . - Condition is Stable. - Discharge Instructions: Threatened Miscarriage. - Medication Reconciliation, Local Pharmacy Hours form. - Follow up: Private Physician; When: Tomorrow; Reason: Recheck today's complaints, Continuance of care. - Problem is new. - Symptoms have improved. - Notes: PLEASE FOLLOW UP WITH [facility] TOMORROW, RETURN TO THE ER IF THE SYPTOMS WORSEN OR BECOME CONCERNING Historical: - Allergies: No known drug Allergies; - Home Meds: 1. prednisone 5 mg Oral tab once daily 2. endometrin Unknown daily - PMHx: none; - PSHx: D & C; - Social history: Smoking status: Patient states was never smoker of tobacco. No barriers to communication noted, The patient speaks fluent Upper Sorbian, Speaks appropriately for age. - Family history: Not pertinent. - : The pt / caregiver states he / she is not on anticoagulants. Home medication list is obtained from the patient. - Exposure Risk Screening:: None identified. 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 3 in. (160.02 cm) (R); Pain 3/10; 20:32 BP 119 / 71; Pulse 62; Resp 16; Temp 98.0; Pulse Ox 99% on R/A; Pain 0/10; mlc 17:18 Body Mass Index 27.10 (69.40 kg, 160.02 cm) gr2 MDM: 17:39 Undress patient appropriately for examination ordered. cc10 17:39 Set up pelvic ordered. cc10 17:40 Wet Prep Ordered. EDMS 17:40 Urine Culture Ordered. EDMS 17:41 US 1st trimester Ordered. EDMS 17:41 Complete Blood Count Ordered. EDMS 17:41 Hcg, Serum Quantitative Ordered. EDMS 17:41 Type & Screen Ordered. EDMS 17:41 Urinalysis Ordered. EDMS 17:41 GC & Chlamydia Amplification Ordered. EDMS 17:47 Financial registration complete. ks16 18:42 TRANSVAGINAL US Ordered. EDMS 18:43 DUPLEX SCAN LIMITED (DOPPLER) Ordered. EDMS 19:12 Complete Blood Count Reviewed. ck7 19:12 Hcg, Serum Quantitative Reviewed. ck7 19:12 Type & Screen Reviewed. ck7 19:12 Wet Prep Reviewed. ck7 19:12 US 1st trimester Reviewed. ck7 20:06 [facility] [place] Agreement was scanned into [employer] and attached to record. ks16 20:20 Urinalysis Reviewed. ck7 05/05 11:29 T-Sheet-- Draft Copy was scanned into [employer] and attached to record. gb Signatures: Dispatcher [employer] EDMS Emily Dutta, Reg Reg gb Deborah Ross RN RN hs1 Joseph Watkins, RPA-C RPA-Cck7 Kavita Rangel RN RN mk4 Celio Snow PA-C PA-C cc10 Odette Garces,RN RN [facility] Ana Jarvis, Reg Reg ks16 The chart was reviewed and I authenticate all verbal orders and agree with the evaluation and treatment provided.Attachments: 05/04 20:06 [facility] [place] Agreement [email or web address] 05/05 11:29 T-Sheet-- Draft Copy gb Chart Complete MTDD
--- NOTE | 2016-05-08 18:32 | EDDOCDS ---
Nurse's Notes [facility] Name: Doris Dobson Age: 25 yrs Sex: Female : 1990 Arrival Date: 05/04/2016 Time: 17:16 Bed I2 / M2 Private MD: Jadon Diagnosis: Threatened Presentation: 05/04 17:24 Presenting complaint: Patient states: 6 weeks and started bleeding. Patient hs1 reports cramping and found blood in underwear. Small clots also noted. Risk factors: The patient reports no loss of conciousness prior to arrival. This patient has not had a hysterectomy. This patient has not begun menopause. Adult Sepsis Screening: The patient does not have new or worsening altered mentation. Patient's respiratory rate is less than 22. Systolic blood pressure is greater than 100. Patient has a qSOFA score of 0- Negative Sepsis Screen. Suicide/Homicide risk assessment- the patient denies having any suicidal and/or homicidal ideations and does not present with any other emotional, behavioral or mental health complaints. 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 Transition of care: patient was not received from another setting of care. 17:24 Acuity: LISA Level 3 hs1 17:24 Method Of Arrival: Walkin/Carried/Asstd hs1 Triage Assessment: 17:28 General: Appears uncomfortable, Behavior is anxious, appropriate for age, cooperative. hs1 Pain: Location: pelvis Pain currently is 2 out of 10 on a pain scale. Quality of pain is described as crampy. HIV screening NA for this visit Offered previously. : Reports vaginal bleeding that is with clots light flow. 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 prednisone 5 mg Oral tab once daily 2. endometrin Unknown daily - PMHx: none; - PSHx: D & C; - Social history: Smoking status: Patient states was never smoker of tobacco. No barriers to communication noted, The patient speaks fluent Kyrgyz, Speaks appropriately for age. - Family history: Not pertinent. - : The pt / caregiver states he / she is not on anticoagulants. Home medication list is obtained from the patient. - Exposure Risk Screening:: None identified. Screenin:33 Screening information is obtained from the patient. Fall risk: No risks identified. mk4 Assistance ADL's: requires no assistance with activities of daily living. Abuse/DV Screen: The patient / caregiver reports he/she is: not in a situation that causes fear, pain or injury. Nutritional screening: No deficits noted. Advance Directives: Currently, there is no health care proxy. There is no active DNR order. There is no living will. There is no Power of Weaving Supervisor. home support is adequate. Assessment: 17:33 General: Appears uncomfortable. Pain: Location: dull abd cramping. : Reports vaginal mk4 bleeding that is sudden onset about an hour ago, is approx 6 weeks , third , prev 2 have ended in miscarriage felt a gush of blood then she wiped and had bleeding on the paper, some dull abd cramping today. 17:44 Respiratory: Respiratory effort is unlabored, Respiratory pattern is regular, ck1 symmetrical. : Reports cramping vaginal bleeding that is brown light flow Denies burning with urination, urinary frequency. Derm: Skin is pink, warm & dry. 18:40 General: Appears in no apparent distress, comfortable. Pain: Location: pelvis Pain ck1 currently is 2 out of 10 on a pain scale. Quality of pain is described as crampy. Neurological: Level of Consciousness is awake, alert, obeys commands. Respiratory: Respiratory effort is unlabored, Respiratory pattern is regular, symmetrical. : Reports vaginal bleeding that is brown light flow. Derm: Skin is pink, warm & dry. 19:44 General: Appears in no apparent distress, comfortable, Behavior is cooperative, crying. mlc General: SO at bedside. Pain: Denies pain. Neurological: Level of Consciousness is awake, alert, Oriented to person, place, time. Respiratory: Airway is patent Respiratory effort is even, unlabored, Respiratory pattern is regular. GI: Denies nausea. Derm: Skin is pink, warm & dry. Vital Signs: 17:18 BP 123 / 82; Pulse 57; Resp 18 S; Temp 97.0(O); Pulse Ox 98% on R/A; Weight 69.4 kg gr2 (R); Height 5 ft. 3 in. (160.02 cm) (R); Pain 3/10; 20:32 BP 119 / 71; Pulse 62; Resp 16; Temp 98.0; Pulse Ox 99% on R/A; Pain 0/10; mlc 17:18 Body Mass Index 27.10 (69.40 kg, 160.02 cm) gr2 Vitals: 17:18 Log In Time: May 04, 2016 at 17:18. gr2 ED Course: 17:18 Patient visited by Priscilla Parker. gr2 17:18 Jadon is Private Physician. gr2 17:18 Patient moved to Waiting gr2 17:19 Patient visited by Priscilla Parker. gr2 17:19 Patient moved to Pre RCE gr2 17:25 Triage Initiated hs1 17:30 Patient moved to I2 / M2 mk4 17:35 Celio Snow PA-C is PHCP. cc10 17:35 Raymond Hulrey DO is Attending Physician. cc10 17:35 Patient visited by Celio Snow PA-C. cc10 17:35 Patient visited by Celio Snow PA-C. cc10 17:45 Patient visited by Nikkie Michelle RN. ck1 17:45 The patient / caregiver is instructed regarding the plan of care and ED course. ck1 17:51 Complete Blood Count Sent. ck1 17:51 Hcg, Serum Quantitative Sent. ck1 17:51 Type & Screen Sent. ck1 17:54 Assist provider with pelvic exam: Set up pelvic tray. Specimens sent to lab. Performed ck1 by Celio Snow PA-C Patient tolerated well. 17:54 GC & Chlamydia Amplification Sent. ck1 17:54 Wet Prep Sent. ck1 18:02 PHCP role handed off by Celio Snow PA-C ck7 18:02 Joseph Watkins RPA-C is PHCP. ck7 18:07 Pt greeted and oriented to ED. Patient advised of names of staff involved in care, jam1 location of call disla, wait times and NPO status. Patient has correct armband on for positive identification. Placed in gown. Bed in low position. Call light in reach. Side rails up X 1. Door closed. 18:17 Patient visited by Joseph Watkins RPA-C. ck7 18:20 Patient moved to Ultrasound br3 18:36 Patient moved to I2 / M2 ck1 18:48 Patient visited by Nikkie Michelle RN. ck1 19:09 US 1st trimester Returned. EDMS 19:22 Patient visited by Joseph Watkins RPA-C. ck7 19:44 Urine Culture Sent. mlc 19:44 Urinalysis Sent. mlc 19:45 Patient visited by Odette Garces,ANNEMARIE. mlc 20:06 [facility] Payment Agreement was scanned into [employer] and attached to record. ks16 20:17 Patient visited by Joseph Watkins RPA-C. ck7 20:32 Odette Garces,ANNEMARIE is Primary Nurse. mlc 20:32 Patient visited by Odette Garces RN. mlc 20:32 No IV's were initiated during this patient's visit. [facility] [place] 05/05 11:29 T-Sheet-- Draft Copy was scanned into [employer] and attached to record. gb Order Results: Lab Order: Complete Blood Count; SPEC'M 05/04/16 17:50 Test: WHITE BLOOD COUNT; Value: 7.8; Range: 4.0-10.0; Units: K/mm3; Status: F Test: RED BLOOD COUNT; Value: 4.05; Range: 4.00-5.40; Units: M/mm3; Status: F Test: HEMOGLOBIN; Value: 12.2; Range: 12.0-16.0; Units: g/dl; Status: F Test: HEMATOCRIT; Value: 35.1; Range: 36.0-47.0; Abnormal: Below low normal; Units: %; Status: F Test: MEAN CORPUSCULAR VOLUME; Value: 86.7; Range: 80.0-96.0; Units: fl; Status: F Test: MEAN CORPUSCULAR HEMOGLOBIN; Value: 30.1; Range: 27.0-33.0; Units: pg; Status: F Test: MEAN CORPUSCULAR HGB CONC; Value: 34.7; Range: 32.0-36.5; Units: g/dl; Status: F Test: RED CELL DISTRIBUTION WIDTH; Value: 12.0; Range: 11.5-14.5; Units: %; Status: F Test: PLATELET COUNT, AUTOMATED; Value: 187; Range: 150-450; Units: k/mm3; Status: F Lab Order: Hcg, Serum Quantitative; SPEC'M 05/04/16 17:50 Test: HCG, SERUM QUANTITATIVE; Value: 574; Units: MIU/ML; Status: F Test Note: ; GESTATIONAL AGE APPROXIMATE HCG RANGE (MIU/ML) 0.2-1 WEEK 5-50 1-2 WEEKS 50-500 2-3 WEEKS 100-5,000 3-4 WEEKS 500-10,000 4-5 WEEKS 1,000-50,000 5-6 WEEKS 10,000-100,000 6-8 WEEKS 15,000-200,000 2-3 MONTHS 10,000-100,000 NON FEMALES LESS THAN 3.0 Patient samples may contain human heterophilic antibodies that could react with immunoassays to give falsely elevated or depressed results. This assay has been designed to minimize interference from heterophilic antibodies. Elevated hCG levels have also been associated with trophoblastic disease and nontrophoblastic neoplasms. The possibility of having these diseases should be considered before a diagnosis of is made. This test is not intended for use as a surrogate marker for aiding in the diagnosis or monitoring the treatment of cancer patients. Siemens [place] methodology. Lab Order: Type & Screen; [facility] 05/04/16 17:50 Test: BLOOD TYPE; Value: O POS; Status: F Test: AB SCREEN (INDIRECT FARTUN)VIS; Value: NEGATIVE; Status: F Lab Order: Urinalysis; [facility] 05/04/16 19:41 Test: APPEARANCE, URINE; Value: HAZY; Range: CLEAR; Status: F Test: COLOR, URINE; Value: YELLOW; Range: YELLOW; Status: F Test: PH,URINE; Value: 5.0; Range: 5.0-9.0; Units: UNITS; Status: F Test: SPECIFIC GRAVITY URINE AUTO; Value: 1.025; Range: 1.002-1.035; Status: F Test: PROTEIN, URINE AUTO; Value: NEGATIVE; Range: NEGATIVE; Units: mg/dL; Status: F Test: GLUCOSE, URINE (UA) AUTO; Value: NEGATIVE; Range: NEGATIVE; Units: mg/dL; Status: F Test: KETONE, URINE AUTO; Value: TRACE; Range: NEGATIVE; Abnormal: Above high normal; Units: mg/dL; Status: F Test: UROBILINOGEN, URINE AUTO; Value: 0.2; Range: 0.0-2.0; Units: mg/dL; Status: F Test: BILIRUBIN, URINE AUTO; Value: NEGATIVE; Range: NEGATIVE; Status: F Test: NITRITE, URINE AUTO; Value: NEGATIVE; Range: NEGATIVE; Status: F Test: LEUKOCYTE ESTERASE, URINE AUTO; Value: NEGATIVE; Range: NEGATIVE; Status: F Test: BLOOD, URINE BLOOD; Value: 3+; Range: NEGATIVE; Abnormal: Above high normal; Status: F Test: WBC, URINE AUTO; Value: 2; Range: 0-3; Units: /HPF; Status: F Test: RBC, URINE AUTO; Value: 120; Range: 0-3; Abnormal: Above high normal; Units: /HPF; Status: F Test: BACTERIA, URINE AUTO; Value: 1+; Range: NEGATIVE; Abnormal: Above high normal; Status: F Test: SQUAMOUS EPITHELIAL CELL UR AU; Value: 2; Range: 0-6; Units: /HPF; Status: F Test: MUCUS, URINE; Value: SMALL; Range: NEGATIVE; Status: F Test: HYALINE CAST, URINE AUTO; Value: 0; Range: 0-1; Units: /LPF; Status: F Lab Order: Wet Prep; SPEC'M 05/04/16 17:50 Test: WET PREP; Value: WET PREP RESULT; Status: F Test: WET PREP; Value: MODERATE EPITHELIAL CELLS PRESENT; Status: F Test: WET PREP; Value: FEW WBC; Status: F Test: WET PREP; Value: FEW RBC; Status: F Test: WET PREP; Value: MODERATE LONG RODS PRESENT; Status: F Test: WET PREP; Value: FEW SHORT RODS PRESENT; Status: F Lab Order: GC & Chlamydia Amplification; SPEC'M 05/04/16 17:50 Test: CHLAMYDIA DNA AMPLIFICATION; Value: NEGATIVE; Range: NEGATIVE; Status: F Test: GC DNA AMPLIFICATION; Value: NEGATIVE; Range: NEGATIVE; Status: F Lab Order: Urine Culture; SPEC'M 05/04/16 19:41 Test: URINE CULTURE; Value: <EXTERNAL COMMENT eCWMed> FULL REPORT IN LAB NOTES (eCW and Medent).; Status: F Test: URINE CULTURE; Value: ORGANISM 1: ESCHERICHIA COLI; Status: F Test: URINE CULTURE; Value: ESCHERICHIA COLI; Status: F Test: URINE CULTURE; Value: COLONY COUNT CFU/ml 50,000; Status: F Test: URINE CULTURE; Value: GRAM NEG SENSI - VITEK 80; Status: F Test: URINE CULTURE; Value: Method: VIT2; Status: F Test: URINE CULTURE; Value: EXTD BRD SPCTRM BETA LACTAMASE -; Status: F Test: URINE CULTURE; Value: TRIMETHOPRIM/SULFAMETHOXAZOLE <=20 S; Status: F Test: URINE CULTURE; Value: AMPICILLIN >=32 R; Status: F Test: URINE CULTURE; Value: GENTAMICIN <=1 S; Status: F Test: URINE CULTURE; Value: NITROFURANTOIN <=16 S; Status: F Test: URINE CULTURE; Value: CEFAZOLIN <=4 S; Status: F Test: URINE CULTURE; Value: LEVOFLOXACIN <=0.12 S; Status: F Test: URINE CULTURE; Value: TOBRAMYCIN <=1 S; Status: F Test: URINE CULTURE; Value: CEFTRIAXONE <=1 S; Status: F Test: URINE CULTURE; Value: CEFTAZIDIME <=1 S; Status: F Test: URINE CULTURE; Value: AMPICILLIN/SULBACTAM >=32 R; Status: F Test: URINE CULTURE; Value: PIPERACILLIN/TAZOBACTAM <=4 S; Status: F Test: URINE CULTURE; Value: AZTREONAM <=1 S; Status: F Test: URINE CULTURE; Value: ERTAPENEM <=0.5 S; Status: F Test: URINE CULTURE; Value: MEROPENEM <=0.25 S; Status: F Test: URINE CULTURE; Value: TIGECYCLINE <=0.5 S; Status: F Test: URINE CULTURE; Value: CEFEPIME <=1 S; Status: F Radiology Order: US 1st trimester Test: US 1st trimester REASON FOR EXAMINATION: Bleeding; First trimester obstetrical ultrasound for vaginal bleeding:; ; The study is performed with transabdominal, endovaginal and Doppler ultrasound; assessment:; ; Balloon the uterus is anteflexed and the fundus is anteverted.; ; There is no intrauterine gestational sac. The endometrium is not thickened; measuring 13 mm. There is no fluid within the endometrial canal.; ; The ovaries are normal size.; Right ovary measures 2.6 x 2.6 x 2.7 cm.; Left ovary measures 2.9 x 2.0 x 1.8 cm.; ; There is vascular flow in both ovaries with the Doppler resistive index of; intraparenchymal arteries on the right measuring 0.35 and on the left 0.55.; ; There is a 1.7 cm hyperechoic probable hemorrhagic cyst of the left ovary.; ; There is no free fluid in the pelvis.; ; Impression:; ; The findings are nonspecific and could represent an early intrauterine gestation; not yet visible ultrasonographically, spontaneous , blighted ovum or; ectopic gestation.; ; Follow-up is recommended.; ; ; Signed by; Rajesh Guadalupe MD 05/04/2016 07:00 P; Outcome: 05/04 18:36 Ultrasound Study completed. ck1 20:23 Discharge ordered by Provider. ck7 20:32 Discharge Assessment: Patient awake, alert and oriented x 3. No cognitive and/or mlc functional deficits noted. Patient verbalized understanding of disposition instructions. Patient awake and alert. Oriented to person, place and time. patient administered narcotics - no. The following High Risk Discharge criteria are identified: None. Condition: good Condition: stable Condition: improved. Discharge instructions given to patient. Property :Personal belongings accompany Pt. 20:33 Patient left the ED. mlc Signatures: Dispatcher [employer] EDMS Darby Khan, LABORATORY CLERK LABORATORY CLERK jam1 Emily Dutta, Reg Reg gb Nikkie Michelle,RN RN ck1 Kaitlin Parker br3 Deborah Ross RN RN hs1 Joseph Watkins, RPA-C RPA-Cck7 Priscilla Parker gr2 Kavita Rangel RN RN mk4 Celio Snow, PA-C PA-C cc10 Odette Garces RN RN mlc Sorenson, Kimberly, Reg Reg ks16 Chart Complete MTDD
== END 2016-05-04 20:33 | disposition home or self-care (01) ==
LOC: M ED 17:16
DX: O20.0 Threatened abortion (principal); Z3A.01 Less than 8 weeks gestation of pregnancy; Z79.52 Long term (current) use of systemic steroids; Z79.899 Other long term (current) drug therapy

== ENCOUNTER → 2017-02-10 | Outpatient (CLI) | payer OTHER ==
--- NOTE | 2017-02-10 10:35 | REP ---
Clinical: Anatomical evaluation. Comparison: None . Findings: Examination demonstrates a single live intrauterine in variable presentation. motion is identified by technologist. Placenta is noted anteriorly and grade zero without evidence for placenta previa or abruption. Amniotic fluid volume is normal. Cervix measures 3.1 cm in length and appears closed. No evidence for nuchal cord. Gestational age by current measurements 20 weeks 0 days with HOAL 06/30/2017 . FHR equals 160 beats per minute. BPD 4.6 cm 20 weeks 0 days HC 17.4 cm 19 weeks 6 days AC 14.8 cm 20 weeks 1 day FL 3.4 cm 20 weeks 4 days HL 3.3 cm of 21 weeks 2 days HC/AC ratio 1.17 Estimated weight 342 grams ( 58th percentile). Anatomical assessment demonstrates normal structures including cranium, choroid plexus, cavum, cerebellum/posterior fossa, facial features, lungs, four-chamber heart/ left ventricular outflow tract, diaphragm, stomach, cord insertion/three-vessel cord, kidneys/bladder, and extremities. Impression: Single live intrauterine in variable presentation. Limited evaluation of the right cardiac ventricular outflow tract and spine noted. Remainder of the anatomical assessment is complete and normal. Signed by Anders Mendosa MD 02/10/2017 10:27 A
== END ==
LOC: M SMT 07:54
PROVIDERS: ATTEND Specialist
DX: Z34.82 Encounter for supervision of other normal pregnancy, second trimester (principal); Z3A.20 20 weeks gestation of pregnancy

== ENCOUNTER → 2017-03-07 | Outpatient (CLI) | payer OTHER ==
--- NOTE | 2017-03-07 16:22 | REP ---
OB ULTRASOUND: Real-time sonographic evaluation of the gravid uterus is performed. There is a single living intrauterine gestation. The estimated gestational age is 23 weeks 4 days. EDC 06/30/2017. Today's measurements indicate appropriate growth. BPD 59 mm = 24 weeks 1 day, at the 63rd percentile. HC 218 mm = 23 weeks 6 days, at the 60th percentile. AC 194 mm = 24 weeks 1 day, at the 63rd percentile. Femur length 46 mm = 25 weeks 0 days, at the 83rd percentile. HC/AC ratio 1.12 within normal range. Estimated weight 698 grams at the 73rd percentile. Cervix is closed measures 4.2 cm in length. heart rate 160 beats per minute. SEEN/GROSSLY UNREMARKABLE Lateral ventricles Yes Posterior fossa Yes Upper lip Yes Four-chamber heart Yes LVOT Yes RVOT No Stomach Yes Cord insertion Yes Three vessel cord Yes Kidneys Yes Bladder Yes Spine Yes position: Breach. Placenta: Anterior and grade 0 with no previa or abruption. Amniotic fluid: Within normal limits. Signed by Rajesh Pelaez MD 03/09/2017 08:58 A
== END ==
LOC: M SMT 13:45
PROVIDERS: ATTEND Obstetrics & Gynecology
DX: Z34.82 Encounter for supervision of other normal pregnancy, second trimester (principal)

== ENCOUNTER → 2017-03-18 | Outpatient (CLI) | payer OTHER ==
[2017-03-18 13:02] LABS: MEAN CORPUSCULAR HEMOGLOBIN 30.2 pg (27.0-33.0); MEAN CORPUSCULAR HGB CONC 34.8 g/dl (32.0-36.5); MEAN CORPUSCULAR VOLUME 86.7 fl (80.0-96.0); PLATELET COUNT, AUTOMATED 183 10^3/uL (150-450); RED CELL DISTRIBUTION WIDTH 12.6 % (11.5-14.5); WHITE BLOOD COUNT 9.2 10^3/uL (4.0-10.0)
== END ==
LOC: M SMT 09:45
PROVIDERS: ATTEND Obstetrics & Gynecology
DX: Z34.82 Encounter for supervision of other normal pregnancy, second trimester (principal)

== ENCOUNTER → 2017-04-11 | Outpatient (CLI) | payer OTHER | LOC: M SMT 08:13 | DX: Z36.89 Encounter for other specified antenatal screening (principal); Z3A.28 28 weeks gestation of pregnancy | CPT/HCPCS: 76816 ==

== ENCOUNTER → 2017-04-27 | Outpatient (REF) | payer OTHER ==
[2017-04-27 11:43] LABS: INFLUENZA A AMPLIFICATION NEGATIVE (NEGATIVE); INFLUENZA B AMPLIFICATION POSITIVE (NEGATIVE); RSV AMPLIFICATION NEGATIVE (NEGATIVE)
== END ==
LOC: M LAB REF 11:03
DX: J11.1 Influenza due to unidentified influenza virus with other respiratory manifestations (principal)

== ENCOUNTER → 2017-06-03 | Outpatient (REF) | payer OTHER | LOC: M LAB REF 13:00 | DX: Z34.83 Encounter for supervision of other normal pregnancy, third trimester (principal) ==

== ENCOUNTER → 2018-07-02 | Outpatient (REF) | payer OTHER ==
[2018-07-02 22:52] LABS: INFLUENZA A AMPLIFICATION NEGATIVE (NEGATIVE); INFLUENZA B AMPLIFICATION NEGATIVE (NEGATIVE)
== END ==
LOC: M LAB REF 08:23
PROVIDERS: ATTEND Physician Assistant
DX: R52 Pain, unspecified (principal)

== ENCOUNTER → 2019-08-22 | Outpatient (CLI) | payer OTHER ==
[2019-08-22 13:50] LABS: BASO % 0.6 % (0.0-1.0); EOS % 0.6 % (0.0-3.0); HEMATOCRIT 37.5 % (36.0-47.0); HEMOGLOBIN 13.1 g/dl (12.0-15.5); LYMPH # 1.8 10^3/uL (1.5-5.0); LYMPH % 33.6 % (24.0-44.0); MEAN CORPUSCULAR HEMOGLOBIN 29.9 pg (27.0-33.0); MEAN CORPUSCULAR HGB CONC 34.9 g/dl (32.0-36.5); MEAN CORPUSCULAR VOLUME 85.6 fl (80.0-96.0); MONO # 0.3 10^3/uL (0.0-0.8); MONO % 5.5 % (0.0-5.0); NEUTROPHILS # 3.2 10^3/uL (1.5-8.5); NEUTROPHILS % 59.5 % (36.0-66.0); PLATELET COUNT, AUTOMATED 187 10^3/uL (150-450); RED BLOOD COUNT 4.38 10^6/uL (4.00-5.40); WHITE BLOOD COUNT 5.4 10^3/uL (4.0-10.0)
[2019-08-22 14:05] LABS: ALBUMIN 4.3 GM/DL (3.2-5.2); ALT/SGPT 27 U/L (12-78); BILIRUBIN,TOTAL 0.8 MG/DL (0.2-1.0); BLOOD UREA NITROGEN 15 MG/DL (7-18); C REACTIVE PROTEIN QUANTITATIV < 0.30 MG/DL (0.00-0.30); CALCIUM LEVEL 8.6 MG/DL (8.5-10.1); CARBON DIOXIDE LEVEL 25 MEQ/L (21-32); CHLORIDE LEVEL 106 MEQ/L (98-107); CPK CREATINE PHOSPHOKINASE 582 U/L (26-192); CREATININE FOR GFR 0.96 MG/DL (0.55-1.30); FREE T4 1.16 NG/DL (0.76-1.46); GLOMERULAR FILTRATION RATE > 60.0 (>60); GLUCOSE, FASTING 65 MG/DL (70-100); POTASSIUM SERUM 4.1 MEQ/L (3.5-5.1); RHEUMATOID FACTOR QUANT < 10.0 IU/ML (<15.0); SODIUM LEVEL 137 MEQ/L (136-145); TOTAL 25(OH) VITAMIN D 37.7 NG/ML (30.0-100.0); TOTAL PROTEIN 7.4 GM/DL (6.4-8.2)
[2019-08-22 14:24] LABS: ERYTHROCYTE SEDIMENTATION RATE 5 mm/hr (0-20)
[2019-08-28 20:08] LABS: ANA (HEP2) Negative (.); CYCLIC CITRULLINATED PEPTIDE 4 units (0-19); HLA-B27 Negative (.); Lyme Disease IgG/IgM Antibodie <0.91 ISR (0.00-0.90); Lyme Disease IgM Ab Quantitati <0.80 index (0.00-0.79); TISSUE TRANSGLUTAMINASE IgA <2 U/mL (0-3)
== END ==
LOC: M PLALAB 10:23
PROVIDERS: ATTEND Physician Assistant
DX: M25.50 Pain in unspecified joint (principal)

== ENCOUNTER → 2019-12-25 | Outpatient (REF) | payer OTHER | LOC: M SFHCWAGY 17:16 | PROVIDERS: ATTEND Obstetrics & Gynecology | DX: Z12.4 Encounter for screening for malignant neoplasm of cervix (principal) | CPT/HCPCS: 87624; G0123 ==

== ENCOUNTER → 2020-04-07 | Outpatient (CLI) | payer SELFPAY | LOC: M LABSMTC 10:57 | PROVIDERS: ATTEND Pediatrics | DX: Z20.822 Contact with and (suspected) exposure to COVID-19 (principal) ==

== ENCOUNTER → 2020-10-27 | Outpatient (CLI) | payer OTHER ==
--- NOTE | 2020-10-27 09:17 | REP ---
INDICATION: PAIN. COMPARISON: None. TECHNIQUE: Standing frontal view of both knees and AP lateral and sunrise views of the right knee were performed. FINDINGS: There is no evidence of fracture or dislocation. There is no evidence of arthropathy. There is no knee joint effusion. There is lateral displacement of the patella consistent with medial patellar retinacular insufficiency. The periarticular soft tissues are normal. IMPRESSION: 1. Medial patellar retinacular or insufficiency. 2. No evidence of fracture or significant arthropathy. 3. No knee joint effusion. <Electronically signed by Jorge Álvarez > 10/27/20 [id number]
== END ==
LOC: M SOG 08:23
PROVIDERS: ATTEND Orthopaedic Surgery Sports Medicine
DX: M25.561 Pain in right knee (principal); M22.3X1 Other derangements of patella, right knee

== ENCOUNTER → 2020-11-11 | Outpatient (CLI) | payer OTHER ==
--- NOTE | 2020-11-12 09:01 | REP ---
INDICATION: RT KNEE PAIN ? MENISCUS TEAR W/ ACL LAXITY. COMPARISON: Radiographs 10/27/2020. TECHNIQUE: Multiple sequences obtained in the axial, coronal and sagittal planes. FINDINGS: Menisci: There is a tear of the anterior horn lateral meniscus. Cruciate ligaments: Intact. Collateral ligaments: Intact. Extensor mechanism/patellar retinacula: Intact. 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 Bone marrow: Normal signal, no edema or occult fracture. Joint fluid: There is a small joint effusion. Popliteal region: Small amount of fluid is seen in the medial popliteal fossa. There is scattered nonspecific diffuse soft tissue edema. IMPRESSION: There is tear of the anterior horn lateral meniscus. The cruciate and collateral ligaments are intact. 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 There is a small joint effusion, with mild fluid in the medial popliteal fossa. <Electronically signed by Rajesh Pelaez > 11/12/20 0829
== END ==
LOC: M RAD 17:31
PROVIDERS: ATTEND Orthopaedic Surgery Sports Medicine
DX: S83.241A Other tear of medial meniscus, current injury, right knee, initial encounter (principal); X58.XXXA Exposure to other specified factors, initial encounter; Y92.9 Unspecified place or not applicable

== ENCOUNTER → 2021-04-27 | Outpatient (CLI) | payer OTHER ==
[2021-04-27 12:53] LABS: BASO % 0.2 % (0.0-1.0); EOS % 0.5 % (0.0-3.0); HEMATOCRIT 36.7 % (36.0-47.0); HEMOGLOBIN 12.8 g/dl (12.0-15.5); LYMPH % 24.4 % (24.0-44.0); MEAN CORPUSCULAR HEMOGLOBIN 29.7 pg (27.0-33.0); MEAN CORPUSCULAR HGB CONC 34.9 g/dl (32.0-36.5); MEAN CORPUSCULAR VOLUME 85.2 fl (80.0-96.0); MONO # 0.5 10^3/uL (0.0-0.8); MONO % 6.6 % (2.0-8.0); NEUTROPHILS # 5.5 10^3/uL (1.5-8.5); NEUTROPHILS % 68.1 % (36.0-66.0); PLATELET COUNT, AUTOMATED 168 10^3/uL (150-450); RED BLOOD COUNT 4.31 10^6/uL (4.00-5.40); WHITE BLOOD COUNT 8.1 10^3/uL (4.0-10.0)
[2021-04-27 14:06] LABS: HEPATITIS C VIRUS ABY INDEX < 0.0 INDEX (<0.8); HIV 1&2 SCREEN CENTAUR NEGATIVE (NEGATIVE)
[2021-04-27 14:47] LABS: GC DNA AMPLIFICATION NEGATIVE (NEGATIVE)
== END ==
LOC: M PLALAB 10:42
PROVIDERS: ATTEND Advanced Practice Midwife
DX: Z34.91 Encounter for supervision of normal pregnancy, unspecified, first trimester (principal); Z36.89 Encounter for other specified antenatal screening

== ENCOUNTER → 2021-05-26 | Outpatient (CLI) | payer OTHER | LOC: M WHC 09:37 | PROVIDERS: ATTEND Advanced Practice Midwife | DX: Z34.92 Encounter for supervision of normal pregnancy, unspecified, second trimester (principal); Z36.89 Encounter for other specified antenatal screening; Z53.9 Procedure and treatment not carried out, unspecified reason ==

== ENCOUNTER → 2021-06-08 | Outpatient (CLI) | payer OTHER | LOC: M WHC 11:58 | PROVIDERS: ATTEND Advanced Practice Midwife | DX: Z34.92 Encounter for supervision of normal pregnancy, unspecified, second trimester (principal); Z3A.20 20 weeks gestation of pregnancy ==

== ENCOUNTER 2021-07-27 09:30 | Outpatient (CLI) | payer OTHER ==
[~2021-07-27] VITALS: Ht 160 cm; Wt 75.1 kg
[2021-07-27] MEDS ORDERED: PRENTAB7 PO (09:38)
[2021-07-27 10:29] VITALS: BP 105/64
== END 2021-07-27 13:15 | disposition home or self-care (01) ==
LOC: M LDO 09:30
PROVIDERS: ATTEND Advanced Practice Midwife
DX: O36.8320 Maternal care for abnormalities of the fetal heart rate or rhythm, second trimester, not applicable or unspecified (principal); O32.1XX0 Maternal care for breech presentation, not applicable or unspecified; Z3A.27 27 weeks gestation of pregnancy
CPT/HCPCS: 59025; 76816; 76819; 76820; 76821; G0378; G0463

== ENCOUNTER → 2021-07-27 | Outpatient (REF) | payer OTHER ==
[~2021-07-27] MED LIST: PRENTAB7 PO
== END ==
LOC: M PLALAB 08:11
PROVIDERS: ATTEND Advanced Practice Midwife
DX: O36.5990 Maternal care for other known or suspected poor fetal growth, unspecified trimester, not applicable or unspecified (principal); Z3A.27 27 weeks gestation of pregnancy; Z53.8 Procedure and treatment not carried out for other reasons

== ENCOUNTER → 2021-08-10 | Outpatient (CLI) | payer OTHER | LOC: M WHC 09:43 | PROVIDERS: ATTEND Advanced Practice Midwife | DX: Z36.3 Encounter for antenatal screening for malformations (principal); O36.5990 Maternal care for other known or suspected poor fetal growth, unspecified trimester, not applicable or unspecified; Z3A.27 27 weeks gestation of pregnancy ==

== ENCOUNTER → 2021-08-29 | Outpatient (CLI) | payer OTHER ==
[2021-08-29 10:34] LABS: HEMATOCRIT 35.5 % (36.0-47.0); HEMOGLOBIN 12.2 g/dl (12.0-15.5); MEAN CORPUSCULAR HEMOGLOBIN 30.6 pg (27.0-33.0); MEAN CORPUSCULAR HGB CONC 34.4 g/dl (32.0-36.5); PLATELET COUNT, AUTOMATED 157 10^3/uL (150-450); RED BLOOD COUNT 3.99 10^6/uL (4.00-5.40); WHITE BLOOD COUNT 8.1 10^3/uL (4.0-10.0)
== END ==
LOC: M LAB 08:34
PROVIDERS: ATTEND Advanced Practice Midwife
DX: O36.5990 Maternal care for other known or suspected poor fetal growth, unspecified trimester, not applicable or unspecified (principal)

== ENCOUNTER → 2021-09-11 | Outpatient (CLI) | payer OTHER | LOC: M WHC 15:08 | PROVIDERS: ATTEND Advanced Practice Midwife | DX: O36.5930 Maternal care for other known or suspected poor fetal growth, third trimester, not applicable or unspecified (principal); Z3A.32 32 weeks gestation of pregnancy ==

== ENCOUNTER → 2021-10-02 | Outpatient (CLI) | payer OTHER | LOC: M WHC 12:36 | PROVIDERS: ATTEND Advanced Practice Midwife | DX: O36.5990 Maternal care for other known or suspected poor fetal growth, unspecified trimester, not applicable or unspecified (principal); Z3A.35 35 weeks gestation of pregnancy ==

== ENCOUNTER → 2021-10-05 | Outpatient (REF) | payer OTHER | LOC: M PLALAB 07:58 | PROVIDERS: ATTEND Advanced Practice Midwife | DX: O36.5930 Maternal care for other known or suspected poor fetal growth, third trimester, not applicable or unspecified (principal) ==

== ENCOUNTER → 2021-10-12 | Outpatient (CLI) | payer OTHER | LOC: M WHC 08:53 | PROVIDERS: ATTEND Advanced Practice Midwife | DX: O36.5930 Maternal care for other known or suspected poor fetal growth, third trimester, not applicable or unspecified (principal); Z53.9 Procedure and treatment not carried out, unspecified reason ==

== ENCOUNTER → 2021-10-15 | Outpatient (CLI) | payer OTHER | LOC: M WHC 08:41 | PROVIDERS: ATTEND Advanced Practice Midwife | DX: O36.5930 Maternal care for other known or suspected poor fetal growth, third trimester, not applicable or unspecified (principal); Z3A.36 36 weeks gestation of pregnancy; O32.1XX0 Maternal care for breech presentation, not applicable or unspecified ==

== ENCOUNTER → 2021-10-25 | Outpatient (CLI) | payer OTHER ==
[~2021-10-25] MED LIST changes: +COLA100C5 PO; +IBUP80TA PO; +PERCOCET PO
== END ==
LOC: M LABSMTC 11:50
PROVIDERS: ATTEND Anesthesiology
DX: Z01.818 Encounter for other preprocedural examination (principal); Z11.52 Encounter for screening for COVID-19

== ENCOUNTER 2021-10-30 05:23 | Inpatient (IN) | payer OTHER ==
[2021-10-30] VITALS (8 sets, daily range): BP systolic 97–114; BP diastolic 53–72
[~2021-10-30] VITALS: Ht 160 cm; Wt 78.2 kg
[~2021-10-30 05:23] MED LIST changes: -COLA100C5 PO; -IBUP80TA PO; -PERCOCET PO
[2021-10-30] MEDS ORDERED: HOME MED LIST COMPLETE! XX SCH (05:45)
[2021-10-30] MEDS ORDERED: BICITRA 30ML SOLN UDC PO ONE (05:50)
[2021-10-30] MEDS ORDERED: ceFAZolin SOD 2 GM in IV 1 EA IV ONE (05:50)
[2021-10-30] MEDS ORDERED: LR 1,000 ML IV SCH ×3 (05:50→08:50)
[2021-10-30] MEDS ORDERED: LR 1,000 ML IV ONE (05:50)
[2021-10-30 06:28] LABS: MEAN CORPUSCULAR HEMOGLOBIN 30.7 pg (27.0-33.0); MEAN CORPUSCULAR HGB CONC 35.3 g/dl (32.0-36.5); PLATELET COUNT, AUTOMATED 175 10^3/uL (150-450); RED BLOOD COUNT 3.91 10^6/uL (4.00-5.40); WHITE BLOOD COUNT 7.7 10^3/uL (4.0-10.0)
[2021-10-30] MEDS ORDERED: MORPHINE PRES-FREE INJ 10 MG/10 ML VIAL As Ordered ONE (08:09)
[2021-10-30] MEDS ORDERED: OXYTOCIN INJ 10 UNITS/ML VIAL (J2590) As Ordered ONE (08:09)
[2021-10-30] MEDS ORDERED: ONDANSETRON 4MG 2ML VIAL As Ordered ONE (08:23)
[2021-10-30] MEDS ORDERED: KETOROLAC 60MG 2ML VIAL As Ordered ONE (08:40)
[2021-10-30] MEDS ORDERED: NALOXONE INJ 0.4MG/1ML VIAL (J2310 PER 1MG) IV PRN ×2 (08:50)
[2021-10-30] MEDS ORDERED: ONDANSETRON 4MG 2ML VIAL IV PRN ×3 (08:50→09:00)
[2021-10-30] MEDS ORDERED: METOCLOPRAMIDE INJ 10MG/2ML VIAL (J2765 PER 1) IV PRN (08:50)
[2021-10-30] MEDS ORDERED: fentaNYL 100 MCG/2 ML INJECTION IV PRN ×2 (08:50)
[2021-10-30] MEDS ORDERED: PERCOCET 5MG/325MG TAB PO PRN ×3 (08:50→09:00)
[2021-10-30] MEDS ORDERED: MEPERIDINE INJ 25 MG/ML VIAL (J2175) IV PRN ×2 (08:50)
[2021-10-30] MEDS ORDERED: MORPHINE 2 MG/ML 1ML VIAL IV PRN (08:50)
[2021-10-30] MEDS ORDERED: diphenhydrAMINE 50MG/ML VIAL (J1200) IV PRN (08:50)
[2021-10-30] MEDS ORDERED: **NOTE PATIENT COMMENT** MISC XX SCH (08:50)
[2021-10-30] MEDS ORDERED: OXYTOCIN DRIP 30 UNITS in IV 1 EA IV SCH (09:00)
[2021-10-30] MEDS ORDERED: METHYLERGONOVINE MALEATE 0.2 MG/ML VIAL (J2210) IM PRN (09:00)
[2021-10-30] MEDS ORDERED: RHOGAM 300 MCG (1500 IU) INJ (J2790) IM SCH (09:00)
[2021-10-30] MEDS ORDERED: ACETAMINOPHEN 500 MG TAB PO PRN (09:00)
[2021-10-30] MEDS: PRENATAL VITAMINS CHEWABLE TABLET PO SCH (09:00)
[2021-10-30] MEDS: DOCUSATE SODIUM 100MG CAPSULE PO SCH ×2 (09:00→21:02)
[2021-10-30] MEDS ORDERED: ANUSOL HC CREAM 30GM TOP PRN (09:00)
[2021-10-30] MEDS ORDERED: IBUP80TA PO (09:10)
[2021-10-30] MEDS ORDERED: PERCOCET PO (09:10)
[2021-10-30] MEDS ORDERED: COLA100C5 PO (09:10)
[2021-10-30] MEDS ORDERED: OXYTOCIN 30 UNITS IN 0.9% NaCl 500ML IV BAG (J2590) As Ordered ONE (09:33)
[2021-10-30] MEDS: LR 1,000 ML IV SCH ×2 (09:36→17:00)
[2021-10-30] MEDS: SLF 3 ML SYR IV SCH ×2 (14:00→22:00)
[2021-10-30] MEDS: KETOROLAC 30 MG/ML 1ML VIAL IV SCH ×2 (15:00→21:02)
[2021-10-31 02:00] VITALS: BP 109/65
[2021-10-31] MEDS: KETOROLAC 30 MG/ML 1ML VIAL IV SCH (03:12)
[2021-10-31 06:00] VITALS: BP 106/61
[2021-10-31] MEDS: SLF 3 ML SYR IV SCH (06:00)
[2021-10-31 07:23] LABS: HEMATOCRIT 28.7 % (36.0-47.0); MEAN CORPUSCULAR HEMOGLOBIN 30.5 pg (27.0-33.0); MEAN CORPUSCULAR HGB CONC 34.1 g/dl (32.0-36.5); MEAN CORPUSCULAR VOLUME 89.4 fl (80.0-96.0); PLATELET COUNT, AUTOMATED 148 10^3/uL (150-450); RED BLOOD COUNT 3.21 10^6/uL (4.00-5.40); WHITE BLOOD COUNT 8.8 10^3/uL (4.0-10.0)
[2021-10-31 07:26] LABS: HEMOGLOBIN 9.8 g/dl (12.0-15.5)
[2021-10-31] MEDS: DOCUSATE SODIUM 100MG CAPSULE PO SCH ×2 (09:16→21:44)
[2021-10-31] MEDS: PRENATAL VITAMINS CHEWABLE TABLET PO SCH (09:16)
[2021-10-31 10:00] VITALS: BP 113/63
[2021-10-31] MEDS: PERCOCET 5MG/325MG TAB PO PRN ×4 (10:21→22:39)
[2021-10-31] MEDS: IBUPROFEN 800 MG TAB PO SCH ×2 (10:21→18:46)
[2021-10-31 14:00] VITALS: BP 104/55
[2021-10-31 17:59] VITALS: BP 101/60
[2021-10-31] MEDS: SIMETHICONE 80MG CHEW TAB PO PRN (18:46)
[2021-11-01] MEDS: PERCOCET 5MG/325MG TAB PO PRN ×3 (02:57→10:52)
[2021-11-01] MEDS: SIMETHICONE 80MG CHEW TAB PO PRN (02:57)
[2021-11-01] MEDS: IBUPROFEN 800 MG TAB PO SCH ×2 (02:57→10:35)
[2021-11-01 06:00] VITALS: BP 110/66
[2021-11-01] MEDS ORDERED: MEASLES,MUMPS,RUBELLA VACCINE INJ (MMR-II) (90707) SC.IMMUN ONE (09:00)
[2021-11-01] MEDS: PRENATAL VITAMINS CHEWABLE TABLET PO SCH (10:10)
[2021-11-01] MEDS: DOCUSATE SODIUM 100MG CAPSULE PO SCH (10:10)
== END 2021-11-01 13:45 | disposition home or self-care (01) | DRG 788 ==
LOC: M LDI 05:23 → M OBS 10:56
PROVIDERS: ADMIT Obstetrics & Gynecology; ATTEND Obstetrics & Gynecology
PROC: 10D00Z1 Extraction of Products of Conception, Low, Open Approach (ICD-10-PCS; principal; 2021-10-30 07:30)
DX: O32.1XX0 Maternal care for breech presentation, not applicable or unspecified (principal); Z37.0 Single live birth; Z3A.39 39 weeks gestation of pregnancy; Z91.040 Latex allergy status; Z91.018 Allergy to other foods

== ENCOUNTER → 2022-03-08 | Outpatient (REF) | payer OTHER ==
[~2022-03-08] MED LIST changes: +COLA100C5 PO; +IBUP80TA PO; +PERCOCET PO
== END ==
LOC: M SFHCWAGY 17:09
PROVIDERS: ATTEND Obstetrics & Gynecology
DX: Z12.4 Encounter for screening for malignant neoplasm of cervix (principal)

== ENCOUNTER → 2022-08-05 | Outpatient (CLI) | payer OTHER ==
[2022-08-05 13:44] LABS: BASO # 0.1 10^3/uL (0.0-0.2); BASO % 0.8 % (0.0-1.0); EOS # 0.1 10^3/uL (0.0-0.5); EOS % 0.8 % (0.0-3.0); HEMATOCRIT 43.3 % (36.0-47.0); HEMOGLOBIN 14.5 g/dl (12.0-15.5); LYMPH # 2.4 10^3/uL (1.5-5.0); LYMPH % 36.3 % (24.0-44.0); MEAN CORPUSCULAR HEMOGLOBIN 29.3 pg (27.0-33.0); MEAN CORPUSCULAR HGB CONC 33.5 g/dl (32.0-36.5); MEAN CORPUSCULAR VOLUME 87.5 fl (80.0-96.0); MONO # 0.5 10^3/uL (0.0-0.8); MONO % 6.9 % (2.0-8.0); NEUTROPHILS # 3.6 10^3/uL (1.5-8.5); PLATELET COUNT, AUTOMATED 220 10^3/uL (150-450); RED BLOOD COUNT 4.95 10^6/uL (4.00-5.40); WHITE BLOOD COUNT 6.5 10^3/uL (4.0-10.0)
[2022-08-05 13:46] LABS: CHOLESTEROL RISK RATIO 2.12 (<5); FREE T4 1.07 NG/DL (0.89-1.76); HDL CHOLESTEROL 75.4 MG/DL (>40); LDL CHOLESTEROL 70.8 MG/DL (<100); NON-HDL-C 84.6 MG/DL; THYROID STIMULATING HORMONE 0.796 uIU/ML (0.55-4.78)
[2022-08-05 14:13] LABS: HEMOGLOBIN A1c 4.7 % (4.0-6.0)
== END ==
LOC: M PLALAB 09:46
PROVIDERS: ATTEND Physician Assistant
DX: M25.512 Pain in left shoulder (principal); R07.89 Other chest pain; Z13.29 Encounter for screening for other suspected endocrine disorder; Z13.220 Encounter for screening for lipoid disorders

== ENCOUNTER → 2023-02-07 | Outpatient (REF) | payer OTHER | LOC: M SFHCWAGY 13:02 | PROVIDERS: ATTEND Nurse Practitioner Family | DX: N73.9 Female pelvic inflammatory disease, unspecified (principal) ==

== ENCOUNTER → 2023-03-25 | Outpatient (REF) | payer OTHER | LOC: M SFHCWAGY 15:46 | PROVIDERS: ATTEND Nurse Practitioner Family | DX: B37.49 Other urogenital candidiasis (principal) ==

== ENCOUNTER → 2023-05-17 | Outpatient (REF) | payer OTHER | LOC: M LAB REF 17:28 | PROVIDERS: ATTEND Nurse Practitioner Adult Health | DX: J02.0 Streptococcal pharyngitis (principal) ==

== ENCOUNTER → 2023-07-13 | Outpatient (REF) | payer OTHER | LOC: M LAB REF 16:20 | PROVIDERS: ATTEND Physician Assistant | DX: J02.9 Acute pharyngitis, unspecified (principal) ==

== ENCOUNTER → 2023-10-03 | Outpatient (REF) | payer OTHER | LOC: M SFHCWAGY 15:04 | PROVIDERS: ATTEND Nurse Practitioner Family | DX: N89.9 Noninflammatory disorder of vagina, unspecified (principal); N73.9 Female pelvic inflammatory disease, unspecified ==

== ENCOUNTER → 2023-11-25 | Outpatient (REF) | payer OTHER | LOC: M LAB REF 21:29 | PROVIDERS: ATTEND Physician Assistant | DX: K13.0 Diseases of lips (principal) ==

== ENCOUNTER 2024-03-05 14:59 | Emergency (ER) | payer OTHER ==
[~2024-03-05] VITALS: Ht 157.5 cm; Wt 63.6 kg
[2024-03-05 15:34] LABS: BASO % 0.6 % (0.0-1.0); EOS # 0.1 10^3/uL (0.0-0.5); EOS % 0.7 % (0.0-3.0); HEMATOCRIT 38.3 % (36.0-47.0); HEMOGLOBIN 13.5 g/dl (12.0-15.5); LYMPH # 2.6 10^3/uL (1.5-5.0); LYMPH % 38.3 % (24.0-44.0); MEAN CORPUSCULAR HEMOGLOBIN 30.2 pg (27.0-33.0); MEAN CORPUSCULAR HGB CONC 35.2 g/dl (32.0-36.5); MEAN CORPUSCULAR VOLUME 85.7 fl (80.0-96.0); MONO # 0.5 10^3/uL (0.0-0.8); MONO % 7.4 % (2.0-8.0); NEUTROPHILS # 3.6 10^3/uL (1.5-8.5); NEUTROPHILS % 52.9 % (36.0-66.0); PLATELET COUNT, AUTOMATED 196 10^3/uL (150-450); RED BLOOD COUNT 4.47 10^6/uL (4.00-5.40); WHITE BLOOD COUNT 6.9 10^3/uL (4.0-10.0)
[2024-03-05 15:49] LABS: INR 0.94; PARTIAL THROMBOPLASTIN TIME 32.1 SECONDS (24.8-34.2); PROTHROMBIN TIME 12.9 SECONDS (12.5-14.5)
[2024-03-05 16:00] LABS: CK-MB VALUE MASS < 1.0 NG/ML (<3.6)
[2024-03-05 16:01] LABS: LIPASE 29 U/L (12-53)
[2024-03-05 16:03] LABS: ALKALINE PHOSPHATASE 52 U/L (35-104); ALT/SGPT 16 U/L (7.0-40); AST/SGOT 11 U/L (<34); BILIRUBIN,DIRECT 0.2 MG/DL (<0.4); BILIRUBIN,TOTAL 0.6 MG/DL (0.3-1.2); BLOOD UREA NITROGEN 18 MG/DL (9-23); CALCIUM LEVEL 9.9 MG/DL (8.5-10.1); CARBON DIOXIDE LEVEL 26 MMOL/L (20-31); CHLORIDE LEVEL 107 MMOL/L (98-107); CREATININE FOR GFR 0.86 MG/DL (0.55-1.30); GLOMERULAR FILTRATION RATE > 60.0 (>60); GLUCOSE, FASTING 91 MG/DL (60-100); POTASSIUM SERUM 4.4 MMOL/L (3.5-5.1); SODIUM LEVEL 139 MMOL/L (136-145)
[2024-03-05 16:05] LABS: THYROID STIMULATING HORMONE 1.966 uIU/ML (0.55-4.78)
[2024-03-05 16:07] LABS: CPK CREATINE PHOSPHOKINASE 77 U/L (34-145); MB/CK RELATIVE INDEX 1.29 (< OR =4)
[2024-03-05] MEDS ORDERED: ISOVUE-370 76% 100ML VIAL As Ordered ONE (17:15)
[2024-03-05 17:16] LABS: CK-MB VALUE MASS < 1.0 NG/ML (<3.6)
[2024-03-05 17:20] LABS: CPK CREATINE PHOSPHOKINASE 78 U/L (34-145); MB/CK RELATIVE INDEX 1.28 (< OR =4)
[2024-03-05 18:12] VITALS: BP 108/73
[2024-03-05 18:14] VITALS: TEMP 97.3; O2SAT 100
== END 2024-03-05 18:34 | disposition home or self-care (01) ==
LOC: M ED 14:59
DX: R07.9 Chest pain, unspecified (principal); F41.9 Anxiety disorder, unspecified; Z79.899 Other long term (current) drug therapy; Z91.018 Allergy to other foods; Z91.040 Latex allergy status
CPT/HCPCS: 71046; 71275; 80048; 80076; 82550; 82553; 83690; 84439; 84443; 84484; 85025; 85610; 85730; 93005; 93041; 94760; 99285; Q9967

== ENCOUNTER → 2025-03-07 | Outpatient (CLI) | payer OTHER ==
[2025-03-07 07:10] LABS: BASO # 0.0 10^3/uL (0.0-0.2); BASO % 0.5 % (0.0-1.0); EOS # 0.1 10^3/uL (0.0-0.5); EOS % 1.4 % (0.0-3.0); LYMPH # 2.3 10^3/uL (1.5-5.0); LYMPH % 40.4 % (24.0-44.0); MONO # 0.4 10^3/uL (0.0-0.8); MONO % 7.5 % (2.0-8.0); NEUTROPHILS # 2.9 10^3/uL (1.5-8.5); NEUTROPHILS % 50.0 % (36.0-66.0); PLATELET COUNT, AUTOMATED 185 10^3/uL (150-450)
[2025-03-07 07:42] LABS: CORTISOL AM 20.6 UG/DL (4.3-22.4); FREE T4 1.01 NG/DL (0.89-1.76); VITAMIN B12 LEVEL 389 PG/ML (211-911)
[2025-03-07 08:17] LABS: ALT/SGPT 20 U/L (7.0-40); AST/SGOT 23 U/L (<34); CALCIUM LEVEL 8.5 MG/DL (8.5-10.1); CARBON DIOXIDE LEVEL 27 MMOL/L (20-31); CHLORIDE LEVEL 103 MMOL/L (98-107); CREATININE FOR GFR 0.83 MG/DL (0.55-1.30); GLOMERULAR FILTRATION RATE > 90.0 (>60); IRON (FE) 193 UG/DL (50-170); PERCENT SATURATION 64.1 % (13.2-45.0); POTASSIUM SERUM 3.7 MMOL/L (3.5-5.1); SODIUM LEVEL 138 MMOL/L (136-145)
== END ==
LOC: M LAB 06:26
PROVIDERS: ATTEND Physician Assistant
DX: R42 Dizziness and giddiness (principal)